=== PATIENT | female | born 1965 | race Caucasian/White ===

== ENCOUNTER 2020-07-11 13:20 | Emergency (ER) | payer OTHER, SELFPAY ==
[2020-07-11 13:21] VITALS: BP 149/75; PULSE 95; RESP 17; TEMP 36.6; O2SAT 100
--- NOTE | 2020-07-11 14:53 | ED.GENADULT ---
HPI - General Adult General Chief complaint: Extremity Injury, Lower Stated complaint: trouble walking due to right groin pain Time Seen by Provider: 07/11/20 13:27 Source: patient Mode of arrival: ambulatory Limitations: no limitations History of Present Illness HPI narrative: Patient is a 55-year-old female who presents to emergency department for evaluation of low back pain that radiates into the right hip. Patient notes aching pain worse with activity and movement patient has had this pain for months. . Patient is followed by primary care. Patient denies injury or trauma or other Related Data Home Medications Medication Instructions Recorded Confirmed acetaminophen-codeine tablet 12/01/19 alprazolam 12/01/19 amlodipine 12/01/19 venlafaxine mg PO 12/01/19 Allergies Allergy/AdvReac Type Severity Reaction Status Date / Time Penicillins Allergy Unknown Verified 12/01/19 08:29 Review of Systems Review of Systems: All systems reviewed & are unremarkable except as noted in HPI and below PMFSH Past Medical History Medical History Anxiety Depression Hypertension Social History Social History Smoking status: Current every day smoker Gender identity (if verbalized by the patient): Female Exam Narrative: Exam Narrative: GENERAL: Well-appearing, well-nourished, and in no acute distress. HEAD: Normocephalic, atraumatic. EYES: PERRLA and EOMI. ENT: Nares clear, no rhinorrhea or epistaxis. Mucous membranes moist. CHEST: Clear to auscultation. No respiratory distress. No wheezes rales or rhonchi HEART: Regular rate and rhythm. No murmur heard. EXTREMITIES: Normal range of motion. No edema. Tenderness across the lower lumbar spine no deformities noted SKIN: Warm, dry, no rash. NEURO: No focal deficits. Alert and oriented x3. Normal speech and gait. Motor and sensory intact and symmetrical in the extremities PSYCH: Normal mood and affect. Course Course Emergency Course: Patient in the room in no distress aware of case findings treatment plan and diagnosis agreeing to follow with primary care given an anti-inflammatory shot prior to discharge Vital Signs Vital signs: Vital Signs Temperature 97.8 F 07/11/20 13:21 Pulse Rate 95 07/11/20 13:21 Respiratory Rate 17 07/11/20 13:21 Blood Pressure 149/75 H 07/11/20 13:21 Pulse Oximetry 100 07/11/20 13:21 Temperature 97.8 F 07/11/20 13:21 Pulse Rate 95 07/11/20 13:21 Respiratory Rate 17 07/11/20 13:21 Blood Pressure 149/75 H 07/11/20 13:21 Pulse Oximetry 100 07/11/20 13:21 Medical Decision Making MDM Narrative Medical decision making narrative: Patients pain is positional in nature and localized to back without signs of cord compression or cauda equina based on neurological exam, skeletal exam and history. No fever or other significant factors to suggest osteomyelitis or spinal epidural abscess. No symptoms or signs to suggest pain is referred from abdominal or / cardiopulmonary sources. No pulsatile masses noted on exam. Patient ambulates with steady gait and is stable for outpatient management given case findings. Vital Signs Vital Signs: Vital Signs Temperature 97.8 F 07/11/20 13:21 Pulse Rate 95 07/11/20 13:21 Respiratory Rate 17 07/11/20 13:21 Blood Pressure 149/75 H 07/11/20 13:21 Pulse Oximetry 100 07/11/20 13:21 Temperature 97.8 F 07/11/20 13:21 Pulse Rate 95 07/11/20 13:21 Respiratory Rate 17 07/11/20 13:21 Blood Pressure 149/75 H 07/11/20 13:21 Pulse Oximetry 100 07/11/20 13:21 Discharge Plan Discharge Clinical Impression: Acute low back pain Patient Disposition: Home, Self-Care Condition: Stable Instructions: Antibiotic Form, Acute Low Back Pain (ED) Additional Instructions: Medications as needed and prescribed. Limit lifting and joyce
[2020-07-11 15:02] VITALS: BP 149/76; PULSE 90; RESP 17; O2SAT 98
== END 2020-07-11 15:03 | disposition home or self-care (01) ==
PROVIDERS: Emergency Provider Emergency Medicine; PCP Emergency Medicine
DX: M54.5 Low back pain (principal); F41.9 Anxiety disorder, unspecified; F32.9 Major depressive disorder, single episode, unspecified; I10 Essential (primary) hypertension; F17.200 Nicotine dependence, unspecified, uncomplicated
CPT/HCPCS: 99283

== ENCOUNTER 2020-09-02 08:41 | Outpatient (CLI) | payer OTHER, SELFPAY ==
--- NOTE | ~2020-09-02 | MM_ITS ---
EXAMINATION: MM screening brianna BI w ericka HISTORY: Screening TECHNIQUE: Craniocaudal and mediolateral oblique 3-D tomosynthesis images were obtained and synthetic 2-D images were generated. CAD analysis was submitted and interpreted. COMPARISON: Comparison to multiple prior studies sequentially, with oldest reviewed study dated 07/2018. BREAST PARENCHYMAL COMPOSITION: There are scattered areas of fibroglandular density. FINDINGS: There is no evidence of suspicious mass, calcification, or architectural distortion to sugg est malignancy in either breast. There has been no suspicious interval change. IMPRESSION: 1. No mammographic evidence of malignancy. 2. Recommend routine screening mammography in one year. BI-RADS Category 1: Negative Reviewed, dictated and finalized at location A.
== END 2020-09-02 08:42 | disposition home or self-care (01) ==
PROVIDERS: PCP Emergency Medicine; Visit Provider Emergency Medicine
DX: Z12.31 Encounter for screening mammogram for malignant neoplasm of breast (principal)
CPT/HCPCS: 77063; 77067

== ENCOUNTER 2020-11-28 10:48 | Outpatient (CLI) | payer OTHER, SELFPAY ==
--- NOTE | ~2020-11-28 | US_ITS ---
EXAMINATION: US pelvic complete w TV DATE: 11/28/2020 11:45 INDICATION: Pelvic pain Comparison: No prior studies for comparison. TECHNIQUE: Multiple transabdominal and endovaginal sonographic images of the pelvis performed. FINDINGS: The uterus measures 7 x 3 x 4.4 cm. The endometrial complex measures 2 mm. The right ovary measures 1.9 x 1.5 x 1.5 cm and the left ovary measures 1.7 x 0.9 x 0.8 cm. There ar e small follicles in each ovary. There is no free fluid in the pelvis. There are no abnormal masses seen on either side. IMPRESSION: 1. Normal pelvic ultrasound. Reviewed, dictated and finalized at location A. NG DOUBLE
--- NOTE | ~2020-11-28 | US_ITS ---
EXAMINATION: US soft tissue groin LT EXAM DATE: 11/28/2020 11:45 INDICATION: Left Inguinal pain; pelvic and perineal pain . TECHNIQUE: Multiple grayscale and Doppler images of the left inguinal symptomatic region were obtaine d (by a technologist who performed the scan) and subsequently reviewed. There is no prior study for comparison. FINDINGS: The left inguinal region is unremarkable, no evidence of hernia. Valsalva maneuvers were also imaged. No inguinal lymphadenopathy. IMPRESSION: Unremarkable ultrasound exam. Reviewed, dictated and finalized at location A. 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
== END 2020-11-28 10:49 | disposition home or self-care (01) ==
PROVIDERS: PCP Emergency Medicine; Visit Provider Nurse Practitioner Obstetrics & Gynecology
DX: R10.2 Pelvic and perineal pain (principal)
CPT/HCPCS: 76830; 76856; 76882

== ENCOUNTER 2020-12-25 08:41 | Outpatient (CLI) | payer MEDICARE, MEDICAID, SELFPAY ==
--- NOTE | ~2020-12-25 | CT_ITS ---
EXAMINATION: CT abdomen pelvis w con EXAM DATE: 12/25/2020 09:16 INDICATION: Intra-abdominal pelvic swelling mass, lump. Groin mass. TECHNIQUE: Spiral CT of the abdomen and pelvis was performed following intravenous injection of 100 m L Omnipaque 350. Axial, coronal and sagittal images were reviewed. The dose-length product (DLP) fo r this examination was 392.93 mGy-cm. The exposure was tailored according to patient size (auto mA e xposure control), and iterative reconstruction (ASIR) was used as additional dose reduction technique . There is no prior study for comparison. FINDINGS: Inguinal regions unremarkable. The liver, spleen, adrenal glands and pancreas are unremark able. Gallbladder is unremarkable. No biliary obstruction. Portal and splenic veins are patent. K idneys enhance symmetrically. There is no hydronephrosis. The uterus is unremarkable. The bladde r is unremarkable. There is no retroperitoneal or pelvic lymphadenopathy. There is mild scattered arteriosclerotic disease. The appendix is normal. There is moderate descending and sigmoid colonic diverticulosis. There is no adjacent inflammatory change to suggest diverticulitis. Small duodenal diverticulum. The stomach a nd small bowel are unremarkable. There is expected amount of colonic stool. No free intraperitonea l gas. The heart is normal in size. There are no pericardial or pleural effusions. The lung bases are unremarkable. There are no osteoblastic or osteolytic lesions identified. IMPRESSION: 1. No inguinal hernia or other groin mass. 2. Moderate colonic diverticulosis. Reviewed, dictated and finalized at location B. 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
[2020-12-25 09:07] LABS: Estimated Glomerular Filt Rate > 60
== END 2020-12-25 08:42 | disposition home or self-care (01) ==
LOC: ANHIMG 08:46
PROVIDERS: PCP Emergency Medicine; Visit Provider Obstetrics & Gynecology
DX: R19.00 Intra-abdominal and pelvic swelling, mass and lump, unspecified site (principal); K57.30 Diverticulosis of large intestine without perforation or abscess without bleeding
CPT/HCPCS: 74177; Q9967

== ENCOUNTER 2021-01-15 06:32 | Outpatient (CLI) | payer MEDICARE, MEDICAID, SELFPAY ==
--- NOTE | ~2021-01-15 | MR_ITS ---
EXAMINATION: MR brain/brain stem wo con EXAM DATE: 01/15/2021 07:17 INDICATION: Headaches. TECHNIQUE: Magnetic resonance imaging (MRI) of the brain/brain stem obtained without contrast. Sagitt al T1, axial diffusion, gradient echo (T2*), T1, T2, FLAIR sequences obtained. There is no prior st udy for comparison. FINDINGS: There is a small, thin quadrigeminal plate lipoma. There are no areas of restricted diffusi on to suggest acute infarction. There is no acute hemorrhage seen on the T2*, a hemosiderin sensitiv e sequence. No intraparenchymal brain mass. The ventricles are normal in size. There are no extra-a xial collections. Flow voids are seen in the cerebral arteries on the T2-weighted sequences consiste nt with their expected patency. The orbits are unremarkable. Soft tissue is unremarkable. Most of the right maxillary sinus is opacified. IMPRESSION: 1. No acute intracranial findings. 2. Incidental lipoma over the tectal plate. 3. Right maxillary sinus opacity. Reviewed, dictated and finalized at location B. 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
== END 2021-01-15 06:33 | disposition home or self-care (01) ==
PROVIDERS: PCP Emergency Medicine; Visit Provider Emergency Medicine
DX: R51.9 Headache, unspecified (principal)
CPT/HCPCS: 70551

== ENCOUNTER 2021-06-05 09:26 | Emergency (ER) | payer MEDICARE, MEDICAID, SELFPAY ==
--- NOTE | ~2021-06-05 | XR_ITS ---
EXAMINATION: XR ribs LT 2V w CXR 2V EXAM DATE: 06/05/2021 09:54 INDICATION: Initial encounter following injury, with pain of the left ribs. TECHNIQUE: Frontal projection of the upper left ribs, frontal projection of the lower left ribs, obli que projection of the left ribs, frontal and lateral chest x-ray(s) for interpretation. There is no prior study for comparison. FINDINGS: There are no displaced acute left rib fractures identified. There is no soft tissue abnor mality seen. No confluent consolidation, pneumothorax or pleural effusion suspected. Cardiomediastina l silhouette is normal. Consider educating patient that even if there is a radiographically occult nondisplaced rib fracture, there is no specific treatment other than to refrain from activity that prevents healing. IMPRESSION: No displaced left rib fractures. Reviewed, dictated and finalized at location A.
--- NOTE | ~2021-06-05 | CT_ITS ---
EXAMINATION: CT abdomen pelvis w con EXAM DATE: 06/05/2021 11:14 INDICATION: Fall left abdomen pain. TECHNIQUE: Spiral CT of the abdomen and pelvis was performed following intravenous injection of 100 m L Omnipaque 350. Axial, coronal and sagittal images of the abdomen and pelvis were reviewed. The do se-length product (DLP) for this examination was 285.39 mGy-cm. The exposure was tailored according to patient size (auto mA exposure control), and iterative reconstruction (ASIR) was used as additiona l dose reduction technique. Comparison is made to prior examination from 12/25/2020. FINDINGS: No solid organ injury. The liver, spleen, adrenal glands and pancreas are unremarkable. G allbladder is unremarkable. No biliary obstruction. Portal and splenic veins are patent. Kidneys e nhance symmetrically. There is no hydronephrosis. The uterus is unremarkable. The bladder is unr emarkable. There is no retroperitoneal or pelvic lymphadenopathy. The appendix is normal. The stomach and small bowel are unremarkable. There is moderate amount of c olonic stool. There is mild to moderate descending and sigmoid colonic diverticulosis. There is no a djacent inflammatory change to suggest diverticulitis. No free intraperitoneal gas. The heart is n ormal in size. There are no pericardial or pleural effusions. The lung bases are unremarkable. The re are no acute fractures identified. IMPRESSION: 1. No acute intra-abdominal findings. 2. Mild to moderate colonic diverticulosis. Reviewed, dictated and finalized at location A.
[2021-06-05 09:36] VITALS: BP 123/89; PULSE 95; RESP 18; TEMP 36.7; O2SAT 100
[2021-06-05 10:36] VITALS: BP 140/75; PULSE 71; RESP 18; O2SAT 98
[2021-06-05 10:59] LABS: Basophils Percent Auto 0.4 % (0.2-1.2); Eosinophils Absolute Auto 0.1 K/mm3 (0-0.3); Eosinophils Percent Auto 2.1 % (0-4.4); Hematocrit 38.9 % (37.0-47.0); Hemoglobin 12.3 g/dL (12.0-15.0); Immature Granulocyte Absolute 0.01 K/mm3 (0.00-0.031); Immature Granulocyte Percent A 0.2 % (0-0.5); Lymphocytes Absolute Auto 1.12 K/mm3 (0.9-3.2); Lymphocytes Percent Auto 23.9 % (18.3-44.2); Mean Corpuscular HGB Conc 31.6 g/dl (32-36); Mean Corpuscular Hemoglobin 30.2 pg (26-34); Mean Corpuscular Volume 95.6 fl (80-100); Mean Platelet Volume 8.8 fl (7.4-10.4); Monocytes Absolute Auto 0.5 K/mm3 (0.1-0.6); Monocytes Percent Auto 10.9 % (2.6-8.5); Neutrophils Absolute Auto 2.9 K/mm3 (1.3-6.7); Neutrophils Percent Auto 62.5 % (45.5-73.1); Platelet Count Result 265 k/mm3 (150-375); Red Blood Count 4.07 M/mm3 (4.2-5.4); Red Cell Distribution Width 13.2 % (11.5-14.5); White Blood Count 4.7 K/mm3 (4.5-10.0)
[2021-06-05 11:01] LABS: Alanine Aminotransferase 31 U/L (4-35); Alkaline Phosphatase 58 U/L (38-126); Anion Gap 7 mmol/L (8-16); Aspartate Amino Transferase 31 U/L (14-36); Bilirubin,Total 0.5 mg/dL (0.2-1.3); Blood Urea Nitrogen 12 mg/dL (7-17); Calcium 8.9 mg/dL (8.4-10.2); Carbon Dioxide 23 mmol/L (22-30); Chloride 109 mmol/L (98-107); Estimated CRCL calculation 69 ml/min; Estimated Glomerular Filt Rate > 60; Glucose 112 mg/dL (65-105); Lipase 71 U/L (23-300); Potassium 3.8 mmol/L (3.4-5.0); Sodium 139 mmol/L (137-145)
[2021-06-05] MEDS: SODIUM CHLORIDE 0.9% IV 1,000 ML 999 ML IV CONT (11:01)
[2021-06-05 11:24] LABS: Add Urine Microscopic? YES; Appearance Urine Cloudy (Clear); Bacteria Urine 4+ /hpf; Bilirubin Urine Negative (Negative); Blood Urine Negative (Negative); Color Urine Yellow (Yellow); Glucose Urine UA Negative (Negative); Ketones Urine Negative (Negative); Leukocyte Esterase Ur Negative LEU/UL (Negative); Mucus Urine Rare /lpf; Nitrate Urine Negative (Negative); Protein Urine Negative (Negative); Specific Grav Ur 1.015 (1.001-1.035); Squamous Epithelial Cell Urine Many /hpf (Few); Urobilinogen Urine Negative mg/dL (<2.0)
[2021-06-05 11:30] VITALS: TEMP 36.7
[2021-06-05 11:54] VITALS: BP 107/78; PULSE 67; RESP 12; O2SAT 98
--- NOTE | 2021-06-05 11:57 | ED.GENADULT ---
HPI - General Adult General Chief complaint: Fall Stated complaint: Fall-L rib pain Time Seen by Provider: 06/05/21 10:04 Source: patient and RN notes reviewed Mode of arrival: ambulatory Limitations: no limitations History of Present Illness HPI narrative: Patient is a 56-year-old female who presents to emergency department for evaluation of left ribs and abdominal pain left-sided status post slipping on the stairs a day and a half ago has had aching pain that is progressively worsened worse with activity and movement/denies head injury syncope loss of consciousness. Has not taken anything for her symptoms. Presents uncomfortable but not in distress Related Data Home Medications Medication Instructions Recorded Confirmed alprazolam 12/01/19 amlodipine 12/01/19 venlafaxine mg PO 12/01/19 duloxetine mg PO 06/05/21 Allergies Allergy/AdvReac Type Severity Reaction Status Date / Time Penicillins Allergy Unknown Verified 06/05/21 09:39 Review of Systems Review of Systems: All systems reviewed & are unremarkable except as noted in HPI and below PMFSH Past Medical History Medical History (Updated 06/05/21 @ 12:01 by Francois Jaimes PA-C) Anxiety Depression Hypertension Social History Social History Smoking status: Current every day smoker Gender identity (if verbalized by the patient): Female Exam Narrative: Exam Narrative: GENERAL: Well-appearing, well-nourished, uncomfortable and in no acute distress. HEAD: Normocephalic, atraumatic. EYES: PERRLA and EOMI. ENT: Nares clear, no rhinorrhea or epistaxis. Mucous membranes moist. CHEST: Clear to auscultation. No respiratory distress. No wheezes rales or rhonchi. Tenderness of the left lateral anterior ribs no bruising or deformity HEART: Regular rate and rhythm. No murmur heard. Normal peripheral pulses. ABDOMEN: Soft, nontender, left upper abdominal tenderness with voluntary guarding, normal active bowel sounds. EXTREMITIES: Normal range of motion. No edema. SKIN: Warm, dry, no rash. NEURO: No focal deficits. Alert and oriented x3. PSYCH: Normal mood and affect. Course Course Emergency Course: Patient in the room no distress aware of his findings treatment plan and diagnosis. Patient hemodynamically stable no high risk changes in the blood work or imaging will be referred back home with outpatient follow-up Vital Signs Vital signs: Vital Signs Temperature 98.1 F 06/05/21 09:36 Pulse Rate 95 06/05/21 09:36 Respiratory Rate 18 06/05/21 09:36 Blood Pressure 123/89 06/05/21 09:36 Pulse Oximetry 100 06/05/21 09:36 Temperature 98.1 F 06/05/21 11:30 Pulse Rate 67 06/05/21 11:54 Respiratory Rate 12 06/05/21 11:54 Blood Pressure 107/78 06/05/21 11:54 Pulse Oximetry 98 06/05/21 11:54 Medical Decision Making MDM Narrative Medical decision making narrative: Patients injury or pain is consistent with musculoskeletal etiology. No signs of neurological or vascular compromise on exam. Compartments and tisues are soft without signs of compartment syndrome. Pain is felt appropriate for further evaluation on an outpatient basis. No hypoxemia Vital Signs Vital Signs: Vital Signs Temperature 98.1 F 06/05/21 09:36 Pulse Rate 95 06/05/21 09:36 Respiratory Rate 18 06/05/21 09:36 Blood Pressure 123/89 06/05/21 09:36 Pulse Oximetry 100 06/05/21 09:36 Temperature 98.1 F 06/05/21 11:30 Pulse Rate 67 06/05/21 11:54 Respiratory Rate 12 06/05/21 11:54 Blood Pressure 107/78 06/05/21 11:54 Pulse Oximetry 98 06/05/21 11:54 Lab Data Result diagrams: 06/05/21 10:42 06/05/21 10:42 Labs: Lab Results 06/05/21 06/05/21 06/05/21 Range/Units 10:42 10:42 11:05 WBC 4.7 (4.5-10.0) K/mm3 RBC 4.07 L (4.2-5.4) M/mm3 Hgb 12.3 (12.0-15.0) g/dL Hct 38.9 (37.0-47.0) % MCV 95.6 (80-100) f
[2021-06-05 12:09] VITALS: BP 143/78; PULSE 69; RESP 18; O2SAT 98
== END 2021-06-05 12:24 | disposition home or self-care (01) ==
PROVIDERS: Emergency Medicine Emergency Medical Services; Emergency Provider Emergency Medicine; PCP Emergency Medicine
DX: R07.81 Pleurodynia (principal); R10.9 Unspecified abdominal pain; I10 Essential (primary) hypertension; F32.9 Major depressive disorder, single episode, unspecified; F41.9 Anxiety disorder, unspecified; F17.200 Nicotine dependence, unspecified, uncomplicated; K57.90 Diverticulosis of intestine, part unspecified, without perforation or abscess without bleeding; W10.9XXA Fall (on) (from) unspecified stairs and steps, initial encounter
CPT/HCPCS: 36415; 71046; 71100; 74177; 80053; 81001; 83690; 85025; 96361; 96365; 99284; J0131; J7030; Q9967

== ENCOUNTER 2021-09-09 09:59 | Outpatient (CLI) | payer MEDICARE, MEDICAID, SELFPAY ==
--- NOTE | ~2021-09-09 | MM_ITS ---
EXAMINATION: MM screening brianna BI w ericka HISTORY: Screening mammogram TECHNIQUE: Craniocaudal and mediolateral oblique 3-D tomosynthesis images were obtained and synthetic 2-D images were generated. CAD analysis was submitted and interpreted. COMPARISON: 09/02/2020, 07/26/2019, 03/09/2018 bilateral digital screening mammogram examinations BREAST PARENCHYMAL COMPOSITION: FINDINGS: There is no evidence of suspicious mass, calcification, or architectural distortion to sugg est malignancy in either breast. There has been no suspicious interval change. IMPRESSION: 1. No mammographic evidence of malignancy. 2. Recommend routine screening mammography in one year. BI-RADS Category 1: Negative Reviewed, dictated and finalized at location A.
== END 2021-09-09 10:00 | disposition home or self-care (01) ==
LOC: ANHIMG 10:01
PROVIDERS: PCP Emergency Medicine; Visit Provider Emergency Medicine
DX: Z12.31 Encounter for screening mammogram for malignant neoplasm of breast (principal)
CPT/HCPCS: 77063; 77067

== ENCOUNTER 2021-12-30 00:35 | Day surgery (SDC) | payer MEDICARE, MEDICAID, SELFPAY ==
[2021-12-17 14:05] VITALS: BMI 24.7
[2021-12-30 09:23] VITALS: BP 127/84; PULSE 82; RESP 16; TEMP 35.9; O2SAT 98; BMI 23.6
[2021-12-30] MEDS: LACTATED RINGERS 1,000 ML 150 ML IV CONT (09:36)
--- NOTE | 2021-12-30 10:13 | P.PNAN_ITS ---
Anes - Initial Pre Proc Eval Procedure: Operation Date: 12/30/21 10:30 Proposed Procedures p Colonoscopy - Blu Santo MD Date/Time: 12/30/21 10:13 Surgeon: Blu Santo MD Pre Op Diagnosis: change in bowel habits, constipation Patient Data Age: 56 Gender: F Height: 1.57 m Weight: 58.6 kg Last Vital Signs Temp 96.7 F L 12/30/21 09:23 Pulse 82 12/30/21 09:23 Resp 16 12/30/21 09:23 BP 127/84 12/30/21 09:23 Pulse Ox 98 12/30/21 09:23 Allergies Allergy/AdvReac Type Severity Reaction Status Date / Time Penicillins Allergy Unknown Verified 12/30/21 09:21 Home Medications Medication Instructions Recorded Confirmed Type alprazolam 0.5 mg PO PRN 12/01/19 12/30/21 History amlodipine 5 mg PO DAILY 12/01/19 12/30/21 History duloxetine 60 mg PO DAILY 06/05/21 12/30/21 History ibuprofen [IBU] 600 mg PO QID PRN #7 tablet 06/05/21 12/30/21 Rx lidocaine 1 patch TOPICAL DAILY #1 ea 06/05/21 12/30/21 Rx metaxalone [Skelaxin] 800 mg PO TID PRN #7 tablet 06/05/21 12/30/21 Rx Patient hx anesthesia problems: none Family hx anesthesia problems: none Results Review: All pre-operative results and documents have been reviewed as part of the pre-operative evaluation. [facility], [facility] Past Medical History Medical History (Updated 06/06/21 @ 00:01 by Sharan Padilla) Anxiety Depression Hypertension Social History Social History Years smoked: 20 Smoking status: Former smoker Tobacco type: cigarettes Alcohol intake: current Drinks per week: 1 Substance use: never Substance use type: does not use Living arrangements: with family Gender identity (if verbalized by the patient): Female Spiritual care concerns: No Anes - Eval Final PreProcedure Day of Procedure 12/30/21 10:13 Patient weight: normal Heart: regular rate and rhythm Lungs: clear to auscultation Airway: Mallampati scale class II Neurological: alert and oriented Last oral intake: >/= 8 hours ASA classification: II Emergent: no Anesthetic plan: proceed Anesthesia type and monitoring: general GIVS and standard monitoring Results Review: All pre-operative results and documents have been reviewed as part of the pre-operative evaluation. Informed Consent: The patient's anesthetic plan and its attendant risks and benefits were discussed with the patient/family/POA. Questions were solicited and answers provided to the satisfaction of the patient/family/POA.
--- NOTE | 2021-12-30 10:45 | PM.HPGS ---
History of Present Illness History of Present Illness Consent: Risks, benefits, and alternatives have been discussed and questions answered. Patient agrees to proceed with procedure. Chief complaint: change in bowel habits, constipation Narrative: Jena Shaikh is a 56 year old female with more constipation for last few months, last colonoscopy 2018 with normal random colon bx. 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 Review of Systems Constitutional: Constitutional: Denies headache(s) and Denies weakness Eyes: Eyes: Denies blurry vision ENT: Reports Normal hearing present, Denies headache(s) and Denies neck pain Cardiovascular: Cardiovascular: Denies chest pain and Denies dyspnea Respiratory: Respiratory: Denies dyspnea Gastrointestinal: Gastrointestinal: Reports no additional gastrointestinal complaints Genitourinary: Genitourinary: Denies dysuria Musculoskeletal: Musculoskeletal: Denies neck pain Integumentary/Breasts: Skin/Breast: Denies dry skin Neurologic: Reports Normal hearing present, Denies headache(s) and Denies weakness Psychiatric: Psychiatric: Denies anxiety Endocrine: Endocrine: Denies change in body appearance Hematologic/Lymphatic: Hematologic/Lymphatic: Denies easy bleeding Allergic/Immunologic: Allergic/Immunologic: Denies urticaria PMFSH Past Medical History Medical History (Updated 12/30/21 @ 10:46 by Blu Santo MD) Anxiety Constipation Depression Hypertension Social History Social History Years smoked: 20 Smoking status: Former smoker Tobacco type: cigarettes Alcohol intake: current Drinks per week: 1 Substance use: never Substance use type: does not use Living arrangements: with family Gender identity (if verbalized by the patient): Female Spiritual care concerns: No Meds Home Medications and Allergies Home Medications Medication Instructions Recorded Confirmed Type alprazolam 0.5 mg PO PRN 12/01/19 12/30/21 History amlodipine 5 mg PO DAILY 12/01/19 12/30/21 History duloxetine 60 mg PO DAILY 06/05/21 12/30/21 History ibuprofen [IBU] 600 mg PO QID PRN #7 tablet 06/05/21 12/30/21 Rx lidocaine 1 patch TOPICAL DAILY #1 ea 06/05/21 12/30/21 Rx metaxalone [Skelaxin] 800 mg PO TID PRN #7 tablet 06/05/21 12/30/21 Rx Allergies Allergy/AdvReac Type Severity Reaction Status Date / Time Penicillins Allergy Unknown Verified 12/30/21 09:21 Vital Signs Vital Signs - 24 hr 12/30/21 09:23 Temperature 96.7 F L Pulse Rate 82 Respiratory Rate 16 Blood Pressure 127/84 Pulse Oximetry 98 Exam Const: General: comfortable and no acute distress HENMT: General nose exam: Normal nares present Eyes: General: appearance normal, both eyes and all related structures Neck: Neck: no JVD Resp: Auscultation: clear to auscultation bilaterally Cardio: Rate: regular rate Rhythm: regular rhythm GI: Inspection: non-distended GI Palp: Yes Soft to palpation Skin: General skin exam: normal color Neuro: General: gait normal Speech: normal speech Extrem: General: normal to inspection Psych: Mental Status: mental status grossly normal Assessment and Plan Assessment and plan (1) Constipation: Code(s): K59.00 - Constipation, unspecified Status: Acute Assessment and Plan: colonoscopy
[2021-12-30 11:03] VITALS: BP 94/63; PULSE 74; RESP 22; O2SAT 97
[2021-12-30 11:13] VITALS: BP 116/66; PULSE 73; RESP 13; O2SAT 100
[2021-12-30 11:23] VITALS: BP 119/61; PULSE 69; RESP 32; O2SAT 99
== END 2021-12-30 11:34 | disposition home or self-care (01) ==
PROVIDERS: PCP Emergency Medicine; Visit Provider Internal Medicine Gastroenterology
PROC: 0DJD8ZZ Inspection of Lower Intestinal Tract, Via Natural or Artificial Opening Endoscopic (ICD-10-PCS; CPT 45378; principal; 2021-12-30 10:30)
DX: Z12.11 Encounter for screening for malignant neoplasm of colon (principal); K59.00 Constipation, unspecified; K57.30 Diverticulosis of large intestine without perforation or abscess without bleeding; K64.8 Other hemorrhoids; I10 Essential (primary) hypertension; F41.8 Other specified anxiety disorders; Z87.891 Personal history of nicotine dependence
CPT/HCPCS: G0121; J2704; J7120

== ENCOUNTER 2022-06-12 11:21 | Emergency (ER) | payer OTHER, MEDICARE, MEDICAID, SELFPAY ==
--- NOTE | ~2022-06-12 | XR_ITS ---
XR hip BI wo pelvis 06/12/2022 14:14 Indication: Hip pain after fall Procedure: 2 views of each hip Comparison: No prior studies for comparison. Findings: There is moderate osteoarthritis of the hips. No acute fracture or traumatic malalignment. Pelvic rings are intact. There is lower lumbar spondylosis. Impression: 1: No acute fracture. Reviewed, dictated and finalized at location A. Impression: 1: No acute fracture.
--- NOTE | ~2022-06-12 | XR_ITS ---
XR shoulder RT min 2V 06/12/2022 12:41 INDICATION: Right shoulder pain after fall PROCEDURE: 4 views right shoulder COMPARISON: No prior studies for comparison. FINDINGS: Fracture, dislocation or subluxation is not identified. There are mild degenerative changes of the acromioclavicular joint. The soft tissues appear within normal limits. No foreign bodies are identified. IMPRESSION: 1: NO ACUTE BONE OR JOINT ABNORMALITY IDENTIFIED. Reviewed, dictated and finalized at location A.
--- NOTE | ~2022-06-12 | XR_ITS ---
XR knee LT 2V 06/12/2022 12:42 INDICATION: Left knee pain PROCEDURE: 2 views left knee COMPARISON: No prior studies for comparison. FINDINGS: Fracture, dislocation or subluxation is not identified. No significant joint effusion. The soft tissues appear within normal limits. No foreign bodies are identified. IMPRESSION: 1: NO ACUTE BONE OR JOINT ABNORMALITY IDENTIFIED. Reviewed, dictated and finalized at location A.
--- NOTE | ~2022-06-12 | XR_ITS ---
XR hand RT min 3V 06/12/2022 12:41 INDICATION: Right hand pain PROCEDURE: 3 views right hand COMPARISON: No prior studies for comparison. FINDINGS: Fracture, dislocation or subluxation is not identified. The soft tissues appear within norm al limits. No foreign bodies are identified. IMPRESSION: 1: NO ACUTE BONE OR JOINT ABNORMALITY IDENTIFIED. Reviewed, dictated and finalized at location A.
--- NOTE | ~2022-06-12 | XR_ITS ---
XR ankle RT 2V 06/12/2022 12:41 Indication: Right ankle pain after fall Procedure: 2 views right ankle Comparison: No prior studies for comparison. Findings: There is a probable nondisplaced oblique distal fibular fracture. Ankle mortise intact. Arnold ar dome is normal. Small degenerative calcaneal enthesophyte. Impression: 1: Probable nondisplaced oblique distal fibular fracture. Correlate for point tenderness. Reviewed, dictated and finalized at location A. Impression: 1: Probable nondisplaced oblique distal fibular fracture. Correlate for point t enderness.
--- NOTE | ~2022-06-12 | CT_ITS ---
EXAMINATION: CT cervical spine wo con DATE: 06/12/2022 12:53 INDICATION: Status post fall. Neck pain. TECHNIQUE: Computed tomography (CT) of the cervical spine was performed without intravenous contrast. The dose-length product was 239 mGy-cm. Automated exposure control and iterative reconstruction tech nique were employed. COMPARISON: None FINDINGS: Normal cervical alignment. There is degenerative disc disease at C3-4 through C6-7. Odontoi d process within normal limits. Lateral masses are normally aligned. There is moderate multilevel unc inate hypertrophy. Lung apices are normal. No significant paraspinal soft tissue abnormality. No acut e fracture or traumatic malalignment. Spinous processes are normal. Craniovertebral junction within n ormal limits. No evidence for perched facet. IMPRESSION: 1. No acute abnormality of the cervical spine. Reviewed, dictated and finalized at location A.
--- NOTE | ~2022-06-12 | CT_ITS ---
EXAMINATION: CT lumbar spine wo con DATE: 06/12/2022 12:53 INDICATION: Low back pain after fall TECHNIQUE: Computed tomography (CT) of the lumbar spine was performed without intravenous contrast. T he dose-length product was 690.64 mGy-cm. Automated exposure control and iterative reconstruction jared hnique were employed. COMPARISON: None FINDINGS: Normal lumbar alignment. There is degenerative disc disease at L5-S1. No acute fracture or traumatic malalignment. There are symmetric degenerative changes of the sacroiliac joints. No evidenc e for spondylolysis or spondylolisthesis. No significant paraspinal soft tissue abnormality. IMPRESSION: 1. No acute abnormality of the lumbar spine. Reviewed, dictated and finalized at location A.
--- NOTE | ~2022-06-12 | CT_ITS ---
EXAMINATION: CT brain wo con DATE: 06/12/2022 12:54 INDICATION: Status post fall. Head injury. TECHNIQUE: Computed tomography (CT) of the head was performed without intravenous contrast. The dose- length product was 605.33 mGy-cm. Automated exposure control and iterative reconstruction technique w ere employed. COMPARISON: None FINDINGS: No acute intracranial hemorrhage, infarction, mass or mass effect. No ventriculomegaly or m idline shift. Basilar cisterns are patent. There is right maxillary sinus disease, likely chronic. Ma stoids are pneumatized. No depressed skull fractures. There are scattered mild periventricular and rey bcortical white matter changes, most likely related to small vessel ischemic disease (microangiopathy ). IMPRESSION: 1. No acute intracranial abnormality. 2: Right maxillary sinus disease, likely chronic. Reviewed, dictated and finalized at location A.
[2022-06-12 11:26] VITALS: BP 150/97; PULSE 89; RESP 16; TEMP 36.6; O2SAT 97
--- NOTE | 2022-06-12 11:58 | ED.FALL ---
HPI - Fall General Chief Complaint: Fall Stated Complaint: glf at [facility] Time Seen by Provider: 06/12/22 11:35 History of Present Illness HPI Narrative: Patient is a 57-year-old female here for evaluation after a fall earlier today. Patient states that she was walking in a grocery store, when she slipped on some water, and fell backwards. She states that she landed on her buttocks, fell backwards and believes she struck her head but she is unsure. Denies LOC. She was able to get up and ambulate after the accident. Currently complaining of pain all over , notes is most severe in severe in neck, low back, right wrist, shoulder, ankle and left knee. Denies incontinence or retention of bowel or bladder. No blood thinner use. Related Data Home Medications Medication Instructions Recorded Confirmed alprazolam 1 mg tablet 0.5 mg PO PRN 12/01/19 12/30/21 amlodipine 5 mg tablet 5 mg PO DAILY 12/01/19 12/30/21 duloxetine 60 mg capsule,delayed 60 mg PO DAILY 06/05/21 12/30/21 release Allergies Allergy/AdvReac Type Severity Reaction Status Date / Time kiwi Allergy Unknown Verified 06/12/22 11:33 Penicillins Allergy Unknown Verified 06/12/22 11:33 Review of Systems Review of Systems: Gen.: Denies fevers or chills Eyes: Denies eye pain or visual change ENT: Denies congestion Respiratory: Denies shortness of breath or cough CV: Denies chest pain or palpitations GI: Denies abdominal pain nausea, emesis or diarrhea denies burning, urgency, frequency or hematuria Musculoskeletal: Reports pain in neck, low back, right wrist, right shoulder, left knee, right ankle. Neuro: Denies numbness, tingling, weakness or focal weakness Skin: Denies rash Except as documented, all other systems reviewed and negative [facility] Past Medical History Medical History Anxiety Constipation Depression Hypertension Social History Social History Years smoked: 20 Smoking status: Former smoker Tobacco type: cigarettes Alcohol intake: current Drinks per week: 1 Substance use: never Substance use type: does not use Gender identity (if verbalized by the patient): Female Spiritual care concerns: No Exam Narrative: APPEARANCE: Well appearing, no pain in distress, well-nourished. Head: Normocephalic and atraumatic. EYES: PERRLA/EOMI, conjunctivae clear NOSE: No nasal drainage EARS: External ear normal in appearance THROAT: Oropharynx is clear. Mucous membranes are moist. NECK: No midline tenderness along C spine, examined after C-spine was cleared. Supple. No adenopathy, no masses. RESPIRATORY: Airway patent, respirations nonlabored. Clear to auscultation bilaterally, no rales, rhonchi, wheezing. CARDIOVASCULAR: Regular rate and rhythm without murmurs, rubs, or gallops. ABDOMINAL: Normoactive bowel sounds. Soft, nontender, nondistended. No rebound tenderness or guarding. MUSCULOSKELETAL: Patient is tender to palpation over right humerus, digits 2-4 of right hand. No anatomic snuffbox tenderness. FROM in right upper extremity at the wrist, elbow, notes pain in shoulder with external rotation. Tender to palpation over midline of L spine, no step-offs or deformities noted. Straight leg raise positive on the left. No bony tenderness along bilateral hips. Tender to palpation over right distal fibula. NEURO: Normal speech. No focal neurologic deficits. SKIN: Skin is warm and dry. No rashes. PSYCHIATRIC: Normal affect/mood. Course Consultations Consultation #1: Spoke with Dr. Lindsay, orthopedic surgeon, recommended posterior fiberglass splint and will see in office. Date: 06/12/22 Time: 14:34 Vital Signs Vital signs: Vital Signs Temperature 98 F 06/12/22 11:26 Pulse Rate 89 06/12/22 11:26 Respiratory Rate 16 06/12/22 11:26 Blood Pressure 150/97 H 06/12/22 11:26 Pulse Oximetry 97 06/12/22 11:
[2022-06-12] MEDS: ACETAMINOPHEN 500 MG TABLET 1000 MG PO (13:48)
[2022-06-12] MEDS: IBUPROFEN 600 MG TABLET PO (13:48)
[2022-06-12 13:53] VITALS: BP 135/87; PULSE 80; RESP 16; O2SAT 97
== END 2022-06-12 16:15 | disposition home or self-care (01) ==
PROVIDERS: Emergency Provider General Practice; PCP Emergency Medicine
DX: S82.831A Other fracture of upper and lower end of right fibula, initial encounter for closed fracture (principal); S19.9XXA Unspecified injury of neck, initial encounter; S39.92XA Unspecified injury of lower back, initial encounter; S69.91XA Unspecified injury of right wrist, hand and finger(s), initial encounter; S49.91XA Unspecified injury of right shoulder and upper arm, initial encounter; S89.92XA Unspecified injury of left lower leg, initial encounter; W01.0XXA Fall on same level from slipping, tripping and stumbling without subsequent striking against object, initial encounter
CPT/HCPCS: 29515; 70450; 72125; 72131; 73030; 73130; 73521; 73560; 73600; 99284; A9270

== ENCOUNTER 2022-08-18 14:30 | Outpatient (RCR) | payer MEDICARE, MEDICAID, SELFPAY ==
--- NOTE | 2022-08-02 09:04 | PTOPEVAL1 ---
Evaluation Information Assessment Status Evaluation Diagnosis s/p R ankle sprain Onset 06-12-22 Subjective Information Jena reports: she slipped and fell, hurting her ankle; is wearing the ankle boot most of the time; in the beginning was not putting weight on her leg, now putting some wt on it; using crutches all the time at home; have started some ankle movements when brace is off; ankle is feeling better and not as swollen as it was; Reported Pain Level Pain Score Self Report range of 3-6/10 Additional Pain Score Comments pain when move around in bed, roll from side/side; educated on correct sleep position with pillow between knees/ankles; awaken from sleeping 2x/ night; up/walking in home about 15 minutes; also reports R knee pain and swelling since fell-- did not have any problems with knee before; Assessment PT Clinical Summary Jena is s/p fall with R ankle sprain. She was indep prior to the fall and now has assist of family and using crutches and walking boot. She has decreased R ankle strength, decreased DF ROM and unable to tolerate full wt on R LE. Skilled PT services are indicated for R ankle strengthening and stretching exercises, modalities PRN for pain and edema with education to progress HEP and gait as tolerated. She stated she will be out of town from Aug 21- . Plan of Care Interventions Electrical Stimulation,Gait Training,Hot Pack/Cold Pack,Intermittent Compression,Manual Therapy, Neuro Re-education,Patient/Caregiver Education, Therapeutic Activities,Therapeutic Exercise,Self- Care/Home Management PT Services Indicated Yes Treatment Frequency and 2x/wk for 6 weeks Duration These treatments will address the objective and functional deficits as defined above. The patient will be advanced safely and appropriately in order for the patient to progress towards his/her prior level of function. Additional exercises will be introduced and as well as a comprehensive home exercise program upon discharge, if needed, ?to ensure carryover of functional gains achieved in the clinic. This treatment plan has been reviewed and agreement upon by the patient.
--- NOTE | 2022-08-18 15:12 | PTOPEVAL1 ---
Assessment and note entered by Iris Douglas, PT Evaluation Information Assessment Status Re-evaluation Diagnosis s/p R ankle sprain Onset 06-12-22 Subjective Information Jena reports: ankle is doing good; no longer wearing the walking boot; using one crutch all the time; saw yesterday and he was pleased with her ankle; leaving to go to [place] next week; Reported Pain Level Pain Score Self Report R ankle Additional Pain Score Comments pain range 0-2/10 in lateral R ankle; sleep without awakening due to ankle pain; standing/ walking tolerance of 15 minutes, then have to sit down; is not wearing the walking boot; doing all the exercises at home; continues to have pain over R medial knee; Assessment PT Clinical Summary Jena has received 6 PT sessions. Compared to the initial evaluation: pain rating has decreased; reported walking/activity and sleeping tolerances have improved; ankle DF ROM and ankle strength have improved; she is not using the walking boot and is using one crutch with walking; Jena is independent with her home exercise program. And is to continue to increase reps. She is leaving on vacation and will be out of town for the next 2 & 1/2 weeks. Will put PT on HOLD. After she returns for follow up dr mosquera, if additional PT is indicated, she will need a new order to resume therapy. She understands this. These treatments will address the objective and functional deficits as defined above. The patient will be advanced safely and appropriately in order for the patient to progress towards his/her prior level of function. Additional exercises will be introduced and as well as a comprehensive home exercise program upon discharge, if needed, ?to ensure carryover of functional gains achieved in the clinic. This treatment plan has been reviewed and agreement upon by the patient.
--- NOTE | 2022-10-11 13:01 | PCPTNOTE ---
PHYSICAL THERAPY DISCHARGE 10-11-22 Attending Provider: Adilson Colmenares MD Patient:Jena Shaikh Date of :1965 Jena has not returned for any further treatments since the reevaluation on 08/18/2022, therefore she will be discharged at this time. Refer to the reevaluation report for her status at the last session. Thank you for referring Jena to [facility].
== END 2022-10-12 11:19 | disposition home or self-care (01) ==
LOC: ANHPT 14:30
PROVIDERS: PCP Emergency Medicine; Visit Provider Orthopaedic Surgery
DX: S93.401D Sprain of unspecified ligament of right ankle, subsequent encounter (principal)
CPT/HCPCS: 97014; 97110; 97116; 97140; 97161; G0283

== ENCOUNTER 2023-02-10 07:42 | Outpatient (CLI) | payer MEDICARE, MEDICAID, SELFPAY ==
--- NOTE | ~2023-02-10 | MM_ITS ---
EXAMINATION: MM screening [facility] BI w ericka HISTORY: Screening TECHNIQUE: Craniocaudal and mediolateral oblique 3-D tomosynthesis images were obtained and synthetic 2-D images were generated. CAD analysis was submitted and interpreted. COMPARISON: Comparison to multiple prior studies sequentially, with oldest reviewed study dated 07/2018. BREAST PARENCHYMAL COMPOSITION: There are scattered areas of fibroglandular density. FINDINGS: There is no evidence of suspicious mass, calcification, or architectural distortion to sugg est malignancy in either breast. There has been no suspicious interval change. IMPRESSION: 1. No mammographic evidence of malignancy. 2. Recommend routine screening mammography in one year. BI-RADS Category 1: Negative Reviewed, dictated and finalized at location A.
--- NOTE | ~2023-02-10 | DEXA_ITS ---
Bone Density Report Name: LUL SERRATO Age: 57 Sex: Female Ethnicity: White Date of : 1965 Indication: osteopenia; prior fracture; postmenopausal Referring Provider: AMY REZA Study: Bone densitometry was performed. Exam Date: February 10, 2023 Accession number: [id number] Bone Density: Region BMD T-score Z-score Classification AP Spine(L1-L4) 0.766 -2.6 -1.1 Osteoporosis Femoral Neck (Left) 0.669 -1.6 -0.3 Osteopenia Total Hip (Left) 0.805 -1.1 -0.2 Osteopenia Femoral Neck (Right) 0.765 -0.8 0.5 Normal Total Hip (Right) 0.822 -1.0 0.0 Normal Total Hip Mean 0.814 -1.1 -0.1 Osteopenia World Health Organization criteria for BMD impression classify patients as: Normal (T-score at or above -1.0), Osteopenia (T-score between -1.0 and -2.5), or Osteoporosis (T-score at or below -2.5). 10-year Fracture Risk: FRAX not reported because: Some T-score for Spine Total or Hip Total or Femoral Neck at or below -2.5 Previous Exams: Region Exam Age BMD T-score BMD Change BMD Change Date g/cm2 vs Baseline vs Previous AP Spine (L1-L4) 02/10/2023 57 0.766 -2.6 -0.141 (-15.6% -0.141 (-15.6% 07/26/2019 54 0.908 -1.3 Total Hip(Left) 02/10/2023 57 0.805 -1.1 -0.125 (-13.4% -0.125 (-13.4% 07/26/2019 54 0.930 -0.1 Total Hip(Right) 02/10/2023 57 0.822 -1.0 -0.133 (-13.9% -0.133 (-13.9% 07/26/2019 54 0.955 0.1 *Denotes significance at 95% confidence level, LSC for AP Spine = 0.022 g/cm2, LSC for Total Hip = 0.027 g/cm2 Clinical Information Provided by Patient: Has had a low trauma fracture Has used the following medications: Vitamin D Patient maximum height was 62 Menopause Age: 46 No regular weight bearing exercise Onset of menses at age 12 Number of children 4 Impression: The patient has established osteoporosis, based on the Total Spine T-score and the existence of a prior fracture. The patient has risk factors, including: previous fracture. The BMD for the AP Spine (L1-L4) decreased, changing by -15.6% since the last DXA exam. The BMD for the Total Hip(Left) decreased, changing by -13.4% since the last DXA exam. The BMD for the Total Hip(Right) decreased, changing by -13.9% since the last DXA exam. Discussion: HIGH RISK OF FRACTURE. BONE DENSITY IS UNDESIRABLY LOW AT ONE OR MORE SKELETAL SITES, CONSISTENT WITH POSTMENOPAUSAL OSTEOPOROSIS. This patient's lowest T-score, in a patient who has previously fractured, meets the Wo
== END 2023-02-10 07:43 | disposition home or self-care (01) ==
LOC: ANHIMG 07:43
PROVIDERS: PCP Emergency Medicine; Visit Provider Emergency Medicine
DX: Z12.31 Encounter for screening mammogram for malignant neoplasm of breast (principal); M81.0 Age-related osteoporosis without current pathological fracture; M85.852 Other specified disorders of bone density and structure, left thigh; M85.851 Other specified disorders of bone density and structure, right thigh
CPT/HCPCS: 77063; 77067; 77080

== ENCOUNTER 2023-08-13 10:16 | Outpatient (CLI) | payer MEDICARE, MEDICAID, SELFPAY ==
--- NOTE | ~2023-08-13 | MR_ITS ---
EXAMINATION: MR lumbar spine wo con DATE: 08/13/2023 11:00 INDICATION: Lumbago with sciatica, right-sided. TECHNIQUE: Magnetic resonance imaging (MRI) of the lumbar spine was performed without intravenous con trast. Sequences included sagittal T2-weighted FSE, sagittal T2-weighted FS FSE, sagittal T1-weighted FSE, and axial T2-weighted FSE. COMPARISON: Lumbar spine MRI 10/16/2018 FINDINGS: There is 6 degrees dextrocurvature of lumbar spine. Vertebral body heights are normal. Ther e is mildly decreased disc height at L2-L3 and L3-L4 and severely decreased disc height at L5-S1. The distal spinal cord signal intensity is normal. The conus medullaris is at L1-L2. The following disc levels are specifically discussed: L1-L2: The disc does not extend beyond the endplate margin. There is mild left facet joint osteoarthr itis. There is no neural foraminal stenosis. There is no central canal stenosis. L2-L3: The disc is bulging. There is mild right and severe left facet joint osteoarthritis. There is mild bilateral neural foraminal stenosis. There is mild central canal stenosis. L3-L4: The disc is bulging. There is mild bilateral facet joint osteoarthritis. There is mild bilater al neural foraminal stenosis. There is mild central canal stenosis. L4-L5: The disc is bulging. There is mild bilateral facet joint osteoarthritis. There is mild bilater al neural foraminal stenosis. There is mild central canal stenosis. L5-S1: The disc is bulging and has an annular fissure. There is severe right and moderate left facet joint osteoarthritis. There is moderate right and mild left neural foraminal stenosis. There is mild central canal stenosis. IMPRESSION: 1. Severe lower lumbar spondylosis, stable from 10/16/2018. Reviewed, dictated and finalized at location A.
== END 2023-08-13 10:17 | disposition home or self-care (01) ==
PROVIDERS: PCP Emergency Medicine; Visit Provider Emergency Medicine
DX: M54.41 Lumbago with sciatica, right side (principal); M47.896 Other spondylosis, lumbar region
CPT/HCPCS: 72148

== ENCOUNTER 2023-09-01 13:21 | Outpatient (RCR) | payer MEDICARE, MEDICAID, SELFPAY ==
--- NOTE | 2023-09-01 15:14 | PTOPEVAL1 ---
Assessment and note entered by Bj Decker Evaluation Information Assessment Status Evaluation Diagnosis right knee pain, lumbago Onset 05/21/22 Subjective Information Pt. reports she fell in May of last year. She does not remember the exact day. She states that she slipped in some water at [employer]. She reports that she went to the hospital immediately. She states that she had a distal fibula fx on the right. She was put in a boot for about 2 months. She states that she did some rehab after getting out of the boot. She reports that pain is located in the right buttock, down the right thigh and into the groin, and also describes pain in the lower leg. She reports that pain is increased with long periods of sitting and standing. She reports that pain makes sleep difficulty. She reports that she has a hx of previous back problems before her fall. Pt. reports that she can walk for about 10-15 minutes before having to sit down due to pain. She reports that she enjoys working on her yard, but cannot do this activity for any adequate period of time due to her pain. She reports that her goal is to decrease her right leg pain and buttock pain. Reported Pain Level Pain Score 5,7,2: Self Report Assessment PT Clinical Summary Pt. is a 58 year old female who enters the clinic with low back pain and right knee pain. She presents with indication of lumbar radiculopathy, as well as right hip pathology on this date. She currently presents with impaired gait, impaired ROM, impaired strength, pain and functional decline. Continued skilled PT is indicated in order to improve these areas to allow for improved comfort with IADL performance. Plan of Care Interventions Electrical Stimulation,Gait Training,Hot Pack/Cold Pack,Manual Therapy,Mechanical Traction,Neuro Re- education,Patient/Caregiver Educati,Therapeutic Activities,Therapeutic Exercise PT Services Indicated Yes Treatment Frequency and 2x/week x 10 visits Duration These treatments will address the objective and functional deficits as defined above. The patient will be advanced safely and appropriately in order for the patient to progress towards his/her prior level of function. Additional exercises will be introduced and as well as a comprehensive home exercise program upon discharge, if needed, ?to ensure carryover of functional gains achieved in the clinic. This treatment plan has been reviewed and agreement upon by the patient.
--- NOTE | 2023-09-01 15:15 | OPREHPOC ---
Outpatient Therapy Plan of Care This is a Multidisciplinary Plan of Care that may contain components documented by all disciplines (PT, OT, and ST.) PT Problem 1 PT Problem #1 Knowledge Deficit PT Goal 1 Goal Independent with a HEP addressing trunk mobility and flexibility Target Visit 2 PT Problem 2 PT Problem #2 Impaired Range of Motion PT Goal 1 Goal -Present at 10 degrees from full knee extension bilateral with the 90/90 test -Pt. will present with 110 degrees active right hip flexion Target Visit 5 PT Problem 3 PT Problem #3 Impaired Gait PT Goal 1 Goal -Pt. will ambulate with equal right and left stance with no indication of trendelenburg. -Pt. will report being able to ambulate for 30 minutes with 2/10 pain at worst Target Visit 10 PT Problem 4 PT Problem #4 Impaired Strength PT Goal 1 Goal Pt. will present with 5/5 gross l.e. strength with manual muscle testing. Target Visit 10
--- NOTE | 2023-09-12 14:29 | PCPTNOTE ---
Patient called & cancelled all scheduled appointments due to DR wanting Pt to wait until after injection. Informed PT.
--- NOTE | 2023-11-17 09:44 | PTOPDC ---
Assessment and note entered by Bj Decker Discharge Information Assessment Status Discharge - Pt Not Present Diagnosis right knee pain, lumbago Onset 05/21/22 Assessment PT Clinical Summary Mrs. Shaikh attended her initial evaluation on 11/12. She has failed to return to the clinic and has not contacted the clinic. At this time refer to her initial evaluation for discharge status. She will be discharged from our care at this time. Plan of Care PT Services Indicated D/C from PT
== END 2023-11-17 11:07 | disposition home or self-care (01) ==
LOC: ANHPT 13:21
PROVIDERS: PCP Emergency Medicine; Visit Provider Emergency Medicine
DX: M25.561 Pain in right knee (principal)
CPT/HCPCS: 97014; 97110; 97162; G0283

== ENCOUNTER 2023-09-13 08:10 | Outpatient (CLI) | payer MEDICARE, MEDICAID, SELFPAY ==
--- NOTE | ~2023-09-13 | XR_ITS ---
EXAMINATION: XR lg joint inject/asp w image DATE: 09/13/2023 09:02 INDICATION: Right hip osteoarthritis TECHNIQUE: A time-out was performed to verify the patient's name, date of , and procedure to b e performed. The procedure including the risks, benefits, and alternatives was discussed with the pat ient. Risks discussed included bleeding and infection. The patient understood the risks and agreed to proceed. The skin overlying the right hip joint was prepped and draped in usual sterile fashion. A nesthetic was administered with 1% lidocaine subcutaneously. A 22 G needle was advanced under fluoro scopic guidance into the joint. Injection of 1 mL of Omnipaque 240 confirmed intra-articular positio n of the needle. Subsequently, injectate consisting of 3 mL of a 2:1 mixture of 0.5% bupivacaine:80 mg/mL Depo-Medrol for a total dosage of 80 mg Depo-Medrol was instilled. Washout of contrast was seen confirming intra-articular administration. The needle was removed and the entry site was cleaned and dressed. There were no immediate complications. Fluoroscopy exposure time was 0.1 minutes. The tota l number of images was 1. Total DAP was 0.3 Gycm^2 FINDINGS: Real-time fluoroscopy demonstrates the needle in the right hip joint. Patient's pain prior to procedure:06/30. Patient's pain following the procedure: 11/30. IMPRESSION: 1. Right hip joint injection of local anesthetic and steroid with decrease in the patient's presentin g pain. Reviewed, dictated and finalized at location A. IMPRESSION: 1. Right hip joint injection of local anesthetic and steroid with decrease in t he patient's presenting pain.
== END 2023-09-13 08:11 | disposition home or self-care (01) ==
PROVIDERS: PCP Emergency Medicine; Visit Provider Nurse Practitioner Family
DX: M16.11 Unilateral primary osteoarthritis, right hip (principal)
CPT/HCPCS: 20610; 77002; J1040; Q9966

== ENCOUNTER 2023-10-25 10:12 | Outpatient (CLI) | payer MEDICARE, MEDICAID, SELFPAY ==
--- NOTE | 2023-10-25 11:30 | NEURO_ITS ---
Impression: # Complains of right upper extremity pain and discomfort. # Not enough to make diagnosis of Carpal Tunnel Syndrome. # Normal needle/EMG exam. # Clinical correlation recommended. Nerve Conduction Studies Anti Sensory Summary Table Stim Site NR Peak (ms) P-T Amp (?V) Site1 Site2 Delta-P (ms) Dist (cm) Lc (m/s) Right Median Anti Sensory (2-3nd Digit) Wrist 3.4 29.5 Wrist 2-3nd Digit 3.4 14.0 41 Wrist 3.4 34.4 Wrist 2-3nd Digit 3.4 14.0 41 Right Radial Anti Sensory (Base 1st Digit) Wrist 2.4 16.8 Wrist Base 1st Digit 2.4 0.0 Right Ulnar Anti Sensory (5th Digit) Wrist 2.7 40.2 Wrist 5th Digit 2.7 14.0 52 Motor Summary Table Stim Site NR Onset (ms) O-P Amp (mV) Site1 Site2 Delta-0 (ms) Dist (cm) Lc (m/s) Right Median Motor (Abd Poll Brev) Wrist 3.5 5.5 Elbow Wrist 4.6 27.0 59 Elbow 8.1 6.2 Right Ulnar Motor (Abd Dig Minimi) Wrist 3.0 3.4 A Elbow Wrist 4.4 28.0 64 A Elbow 7.4 4.0 F Wave Studies NR F-Lat (ms) L-R F-Lat (ms) Right Median (Mrkrs) (Abd Poll Brev) 28.20 Right Ulnar (Mrkrs) (Abd Dig Min) 27.34 EMG Side Muscle Nerve Root Ins Act Fibs Amp Dur Recrt Comment Right 1stDorInt Ulnar C8-T1 Nml Nml Nml Nml Nml Right Ext Indicis Radial (Post Int) C7-8 Nml Nml Nml Nml Nml Right Ext Digitorum Radial (Post Int) C7-8 Nml Nml Nml Nml Nml Right BrachioRad Radial C5-6 Nml Nml Nml Nml Nml Right PronatorTeres Median C6-7 Nml Nml Nml Nml Nml Right Abd Poll Brev Median C8-T1 Nml Nml Nml Nml Nml MTDD
== END 2023-10-25 10:13 | disposition home or self-care (01) ==
PROVIDERS: PCP Emergency Medicine; Visit Provider Emergency Medicine
DX: R20.2 Paresthesia of skin (principal)
CPT/HCPCS: 95886; 95909

== ENCOUNTER 2023-11-16 15:11 | Outpatient (CLI) | payer MEDICARE, MEDICAID, SELFPAY ==
--- NOTE | ~2023-11-16 | XR_ITS ---
EXAM: XR shoulder RT min 2V DATE: 11/16/2023 15:38 HISTORY: M25.511 - Pain in right shoulder X 1 YR + . COMPARISON: 06/12/2022. FINDINGS: Normal mineralization. No fracture or dislocation. No lytic or blastic lesion. Mild AC aston nt hypertrophy. No erosion or periosteal change. Soft tissues within normal limits. IMPRESSION: Mild AC joint osteoarthritis. Reviewed, dictated and finalized at location K. IC DANCER
== END 2023-11-16 15:12 | disposition home or self-care (01) ==
PROVIDERS: PCP Emergency Medicine; Visit Provider Physician Assistant
DX: M19.011 Primary osteoarthritis, right shoulder (principal)
CPT/HCPCS: 73030

== ENCOUNTER 2023-12-21 13:20 | Outpatient (CLI) | payer MEDICARE, MEDICAID, SELFPAY ==
--- NOTE | ~2023-12-21 | XR_ITS ---
EXAMINATION: XR lg joint inject/asp w image DATE: 12/21/2023 14:20 INDICATION: Right hip arthritis. TECHNIQUE: A time-out was performed to verify the patient's name, date of , and procedure to b e performed. The procedure including the risks, benefits, and alternatives was discussed with the pat ient. Risks discussed included bleeding and infection. The patient understood the risks and agreed to proceed. The skin overlying the right hip joint was prepped and draped in usual sterile fashion. A nesthetic was administered with 1% lidocaine subcutaneously. A 22 G needle was advanced under fluoro scopic guidance into the joint. Subsequently, injectate consisting of 2 mL 0.5% bupivacaine and 1 mL 80 mg/mL Depo-Medrol was instilled. The needle was removed and the entry site was cleaned and dress ed. There were no immediate complications. Fluoroscopy exposure time was 0.1 minutes. The total numb er of images was 1. FINDINGS: Real-time fluoroscopy demonstrates the needle in the right hip joint. Patient's pain prior to procedure:9/10. Patient's pain following the procedure: 05/30. IMPRESSION: 1. Fluoroscopy guided right hip joint injection of local anesthetic and steroid with decrease in the patient's presenting pain. Reviewed, dictated and finalized at location A. 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
== END 2023-12-21 13:21 | disposition home or self-care (01) ==
LOC: ANHIMG 13:20
PROVIDERS: PCP Emergency Medicine; Visit Provider Nurse Practitioner Family
DX: M16.11 Unilateral primary osteoarthritis, right hip (principal)
CPT/HCPCS: 20610; 77002; J1040

== ENCOUNTER 2024-03-16 09:57 | Emergency (ER) | payer MEDICARE, MEDICAID, SELFPAY ==
--- NOTE | ~2024-03-16 | CT_ITS ---
EXAMINATION: CT abdomen pelvis wo con DATE: 03/16/2024 11:05 INDICATION: UTI. Lower abdominal pain TECHNIQUE: Computed tomography (CT) of the abdomen and pelvis was performed without intravenous contr ast. The dose-length product was 188.87 mGy-cm. Automated exposure control and iterative reconstructi on technique were employed. COMPARISON: CT dated 06/05/2021. FINDINGS: Lung bases are unremarkable. Heart size normal. No significant pleural or pericardial effus ion. The liver, spleen, pancreas, adrenal glands and kidneys are unremarkable. No hydronephrosis. No stones. Bladder is unremarkable. No abnormal pelvic masses or fluid collections. Nonobstructive bowel gas pattern. Colonic diverticulosis without evidence for diverticulitis. There is moderate lumbar sp ondylosis. No free air or free fluid. Gallbladder is present. No lymphadenopathy. IMPRESSION: 1. No acute abdominal abnormality. Reviewed, dictated and finalized at location B.
[2024-03-16 10:05] VITALS: BP 160/84; PULSE 76; RESP 17; TEMP 36.8; O2SAT 100
--- NOTE | 2024-03-16 10:12 | PC.NURSE ---
BS in room 93 (fasting)
[2024-03-16 10:15] LABS: Glucose Point of Care 93 mg/dl (65-105)
[2024-03-16 10:22] LABS: Appearance Urine Cloudy (Clear); Bacteria Urine None Seen /hpf; Bilirubin Urine 1+ (Negative); Blood Urine 3+ (Negative); Color Urine Dark Yellow (Yellow); Glucose Urine UA Negative (Negative); Ketones Urine Trace mg/dL (Negative); Leukocyte Esterase Ur 3+ LEU/UL (Negative); Nitrate Urine Negative (Negative); Non Pathogenic Casts 0-2; Protein Urine 1+ mg/dL (Negative); RBC Urine 51-100 /hpf (0-2); Specific Grav Ur 1.023 (1.001-1.035); Squamous Epithelial Cell Urine None Seen /hpf (Few); WBC Urine >100 /hpf (0-3); pH Urine 6.5 (5.0-9.0)
[2024-03-16 10:23] LABS: Add Urine Microscopic? YES
--- NOTE | 2024-03-16 10:32 | ED.FEMALEGU ---
HPI - Female Genitourinary General Chief complaint: Urogenital-Female Stated complaint: UTI SYMPTOMS Time Seen by Provider: 03/16/24 10:08 Source: patient Mode of arrival: ambulatory Limitations: no limitations History of Present Illness HPI Narrative: Patient is a 59 y/o female who presents to the ED with c/o UTI symptoms. Patient reports having symptoms over the last 3 days, including dysuria, urinary urgency and frequency with small void urines. States in the mornings, she is often only able to dribble small amounts of urine. Complains of some lower abdominal pain. Denies back or flank pain. Reports history of UTIs and states symptoms feel similar. Denies hematuria. Denies nausea, vomiting, fevers. Related Data Home Medications Medication Instructions Recorded Confirmed alprazolam 1 mg tablet 0.5 mg PO PRN 12/01/19 11/16/23 amlodipine 5 mg tablet 5 mg PO DAILY 12/01/19 11/16/23 duloxetine 60 mg capsule,delayed 60 mg PO DAILY 06/05/21 11/16/23 release Allergies Allergy/AdvReac Type Severity Reaction Status Date / Time kiwi Allergy Unknown Rash Verified 03/16/24 10:12 Review of Systems Review of Systems: CONSTITUTIONAL: Denies fever, chills, or sweats. GASTROINTESTINAL: See HPI GENITOURINARY: See HPI MUSCULOSKELETAL: Denies back pain, flank pain. All systems reviewed & are unremarkable except as noted in HPI and below PMFSH Past Medical History Medical History Anxiety Bleeding nose Constipation Degenerative joint disease (DJD) of hip Depression Dizziness Hypertension Moderate right ankle sprain Sleep disorder Sprain of medial collateral ligament of right knee, subsequent encounter Surgical History Surgical History No history of previous surgery Family History Family History Father Alcoholism Mother Kidney disorder Grandparent Diabetes mellitus Other Carcinoma of colon Hypertension Social History Social History Years smoked: 20 Smoking status: Former smoker Tobacco type: cigarettes Alcohol intake: current Drinks per week: 1 Substance use: never Substance use type: does not use Do You Feel Safe in your Home?: Yes Lack of Transportation: No Lack of Food: Sometimes True Current Housing: I Have Housing Concerned About Future Housing: No Difficulty Paying Gas/Electric Bills: No Difficulty Paying for Meds: No Currently Unemployed: No Education: High School Diploma/GED Difficulty w/ Childcare or Family Care: No Living arrangements: with family Gender identity (if verbalized by the patient): Female Spiritual care concerns: No Exam Narrative: GENERAL: Well appearing, well-nourished, non-toxic, in no acute distress. HEAD: Normocephalic, atraumatic. RESPIRATORY: Airway patent, respirations nonlabored. Clear to auscultation bilaterally, no rales, rhonchi, wheezing. CARDIOVASCULAR: Regular rate and rhythm ABDOMINAL: Soft, mild tenderness over suprapubic region, nondistended. Normoactive BS. No significant CVA tenderness w/ percussion. MUSCULOSKELETAL: Moves all extremities. No gross deformities. SKIN: Warm, dry, normal color. NEURO: A&O X3. Speech clear. PSYCHIATRIC: Mildly anxious appearing. Normal interaction. Course Vital Signs Vital signs: Vital Signs Temperature 98.2 F 03/16/24 10:05 Pulse Rate 76 03/16/24 10:05 Respiratory Rate 17 03/16/24 10:05 Blood Pressure 160/84 H 03/16/24 10:05 Pulse Oximetry 100 03/16/24 10:05 Oxygen Delivery Room Air 03/16/24 10:05 Temperature 98.2 F 03/16/24 10:05 Pulse Rate 76 03/16/24 10:05 Respiratory Rate 17 03/16/24 10:05 Blood Pressure 160/84 H 03/16/24 10:05 Pulse Oximetry 100 03/16/24 10:05 Oxygen Delivery Lucy
[2024-03-16] MEDS: CEPHALEXIN 500 MG CAPSULE PO (10:50)
== END 2024-03-16 11:58 | disposition home or self-care (01) ==
PROVIDERS: Emergency Provider Physician Assistant; PCP Emergency Medicine
DX: N30.01 Acute cystitis with hematuria (principal); F41.9 Anxiety disorder, unspecified; I10 Essential (primary) hypertension; Z87.891 Personal history of nicotine dependence
CPT/HCPCS: 74176; 81001; 82948; 87077; 87086; 87088; 87186; 99284; A9270

== ENCOUNTER 2024-03-23 16:23 | Outpatient (CLI) | payer MEDICARE, MEDICAID, SELFPAY ==
--- NOTE | ~2024-03-23 | MR_ITS ---
EXAMINATION: MR lumbar spine wo con DATE: 03/23/2024 17:17 INDICATION: Lumbago. TECHNIQUE: Magnetic resonance imaging (MRI) of the lumbar spine was performed without intravenous con trast. Sequences included sagittal T2-weighted FSE, sagittal T2-weighted FS FSE, sagittal T1-weighted FSE, and axial T2-weighted FSE. COMPARISON: Lumbar spine MRI 08/13/2023 FINDINGS: There is 4 degrees dextrocurvature of lumbar spine. Vertebral body heights are normal. Ther e is mildly decreased disc height at L3-L4 and severely decreased disc height at L5-S1. The distal sp inal cord signal intensity is normal. The conus medullaris is at L1-L2. The following disc levels are specifically discussed: L1-L2: The disc is bulging. There is mild right and moderate left facet joint osteoarthritis. There i s mild right neural foraminal stenosis. There is mild central canal stenosis. L2-L3: The disc is bulging. There is mild right and moderate left facet joint osteoarthritis. There i s mild bilateral neural foraminal stenosis. There is mild central canal stenosis. L3-L4: The disc is bulging. There is mild right and severe left facet joint osteoarthritis. There is mild bilateral neural foraminal stenosis. There is mild central canal stenosis. L4-L5: The disc is bulging. There is severe bilateral facet joint osteoarthritis. There is mild bilat eral neural foraminal stenosis. There is mild central canal stenosis. L5-S1: The disc is bulging and has an annular fissure. There is severe bilateral facet joint osteoart hritis. There is moderate right and mild left neural foraminal stenosis. There is mild central canal stenosis. IMPRESSION: 1. Severe lower lumbar spondylosis, stable from 08/13/2023. Reviewed, dictated and finalized at location E.
== END 2024-03-23 16:24 | disposition home or self-care (01) ==
LOC: ANHIMG 16:23
PROVIDERS: PCP Emergency Medicine; Visit Provider Nurse Practitioner Family
DX: M47.896 Other spondylosis, lumbar region (principal)
CPT/HCPCS: 72148

== ENCOUNTER 2024-05-03 10:17 | Outpatient (CLI) | payer MEDICARE, MEDICAID, SELFPAY ==
--- NOTE | ~2024-05-03 | MR_ITS ---
MRI of the cervical spine Clinical History: Cervicalgia Technique: Axial T2-weighted and gradient images, and sagittal T1-weighted, T2-weighted, and STIR greta ges were acquired. Findings: There is no fracture or subluxation of the cervical spine. Vertebral bodies maintain normal height and alignment. No suspicious bone marrow signal reality seen. At C2-C3, there is no significant disc bulge or herniation. No spinal canal stenosis, cord compressio n, or neural foraminal narrowing. At C3-C4, there is moderate degenerative disc narrowing. There is minimal disc osteophyte complex. Th ere is no canal stenosis or cord compression. There is probable minimal bilateral neural foraminal na rrowing with minimal bilateral facet arthropathy. At C4-C5, there is degenerative disc narrowing. There is minimal disc osteophyte complex, with possib le mild canal stenosis but no kwasi cord compression. There is severe right neural foraminal narrowin g. Left neural foramen preserved. At C5-C6, there is disc osteophyte complex without canal stenosis or cord compression. There is proba ble mild bilateral neural foraminal narrowing, left worse than right. At C6-C7, there is mild disc osteophyte complex. No canal stenosis or cord compression. There is prob able bilateral neural foraminal narrowing. No abnormal signal seen in the spinal cord. Paravertebral soft tissues are unremarkable. Impression: Moderate degenerative spondylosis from C3 through C6, as detailed above. Reviewed, dictated and finalized at [facility]. Impression: Moderate degenerative spondylosis from C3 through C6, as detailed above.
== END 2024-05-03 10:18 | disposition home or self-care (01) ==
LOC: ANHIMG 10:20
PROVIDERS: PCP Emergency Medicine; Visit Provider Nurse Practitioner Family
DX: M47.892 Other spondylosis, cervical region (principal)
CPT/HCPCS: 72141

== ENCOUNTER 2024-06-17 07:30 | Outpatient (CLI) | payer MEDICARE, MEDICAID, SELFPAY ==
--- NOTE | ~2024-06-17 | MR_ITS ---
MRI of the right hip Clinical history: Pain Technique: Coronal T1-weighted, T2-weighted, and proton-density fat-sat images, and axial T1-weighted and proton-density fat-sat images were acquired through the pelvis. Coronal T2-weighted images and c oronal, axial, and sagittal proton-density fat-sat images were acquired through the right hip. Findings: There is no fracture or avascular necrosis of either hip. No suspicious bone marrow signal abnormality seen in the proximal femoral or pelvic bones. There is diffuse high-grade chondromalacia of the right hip joint. There is prominent osteophyte form ation at the femoral head neck junction and at the superolateral right acetabular margin. Moderate to large right hip joint effusion is present, presumably reactive. Left hip joint is essentially intact , with possible minimal degenerative change. No left hip joint effusion. There is probable degenerati ve tearing of the right acetabular labrum. No muscle atrophy or edema present about the pelvis or right hip. Visualized tendons are intact. No s oft tissue mass or fluid collection evident. IMPRESSION: Advanced osteoarthritis of the right hip joint, as detailed above, with associated presumed reactive moderate to large right hip joint effusion and degenerative right acetabular labral tearing. Minimal degenerative change left hip joint. Reviewed, dictated and finalized at location . IMPRESSION: Advanced osteoarthritis of the right hip joint, as detailed above, with associa edmar presumed reactive moderate to large right hip joint effusion and degenerati ve right acetabular labral tearing. Minimal degenerative change left hip joint.
== END 2024-06-17 07:31 | disposition home or self-care (01) ==
PROVIDERS: PCP Emergency Medicine; Visit Provider Emergency Medicine
DX: M25.551 Pain in right hip (principal); M16.11 Unilateral primary osteoarthritis, right hip; M25.451 Effusion, right hip; S73.191A Other sprain of right hip, initial encounter
CPT/HCPCS: 73721

== ENCOUNTER 2024-06-18 09:33 | Outpatient (CLI) | payer MEDICARE, MEDICAID, SELFPAY ==
--- NOTE | ~2024-06-18 | MM_ITS ---
EXAMINATION: MM screening brianna BI w ericka HISTORY: Screening TECHNIQUE: Craniocaudal and mediolateral oblique 3-D tomosynthesis images were obtained and synthetic 2-D images were generated. CAD analysis was submitted and interpreted. COMPARISON: Comparison to multiple prior studies sequentially, with oldest reviewed study dated 07/2018. BREAST PARENCHYMAL COMPOSITION: Not dense: There are scattered areas of fibroglandular density. FINDINGS: There is no evidence of suspicious mass, calcification, or architectural distortion to sugg est malignancy in either breast. There has been no suspicious interval change. IMPRESSION: 1. No mammographic evidence of malignancy. 2. Recommend routine screening mammography in one year. BI-RADS Category 1: Negative Reviewed, dictated and finalized at location B.
== END 2024-06-18 09:34 | disposition home or self-care (01) ==
PROVIDERS: PCP Emergency Medicine; Visit Provider Emergency Medicine
DX: Z12.31 Encounter for screening mammogram for malignant neoplasm of breast (principal)
CPT/HCPCS: 77063; 77067

== ENCOUNTER 2024-07-11 13:37 | Outpatient (CLI) | payer MEDICARE, MEDICAID, SELFPAY ==
--- NOTE | ~2024-07-11 | CT_ITS ---
EXAMINATION: CT cervical spine wo con DATE: 07/11/2024 13:58 INDICATION: Chronic neck pain. Myelopathy and radiculopathy. TECHNIQUE: Computed tomography (CT) of the cervical spine was performed without intravenous contrast. Automated exposure control and iterative reconstruction technique were employed. The dose-length pro duct was 195.30 mGy-cm. COMPARISON: CT cervical spine 06/12/2022 FINDINGS: There is hypolordosis of cervical spine. Vertebral body heights are normal. There is modera tely decreased disc height at C2-C3 and severely decreased disc height from C3-C4 through C6-C7. The following disc levels are specifically discussed: C2-C3: There is mild bilateral uncovertebral joint osteoarthritis. There is mild bilateral facet join t osteoarthritis. There is no neural foraminal stenosis. There is no central canal stenosis. C3-C4: There is severe bilateral uncovertebral joint osteoarthritis. There is moderate right and ion re left facet joint osteoarthritis. There is mild bilateral neural foraminal stenosis. There is mild central canal stenosis. C4-C5: There is severe right and moderate left uncovertebral joint osteoarthritis. There is moderate bilateral facet joint osteoarthritis. There is moderate right neural foraminal stenosis. There is mil d central canal stenosis. C5-C6: There is severe bilateral uncovertebral joint osteoarthritis. There is severe right and modera te left facet joint osteoarthritis. There is moderate right and mild left neural foraminal stenosis. There is mild central canal stenosis. C6-C7: There is severe bilateral uncovertebral joint osteoarthritis. There is moderate bilateral face t joint osteoarthritis. There is mild bilateral neural foraminal stenosis. There is mild central ava l stenosis. C7-T1: There is no uncovertebral joint osteoarthritis. There is mild right and severe left facet join t osteoarthritis. There is mild left neural foraminal stenosis. There is no central canal stenosis. IMPRESSION: 1. Severe cervical spondylosis, stable from 06/12/2022. Reviewed, dictated and finalized at location A.
--- NOTE | ~2024-07-11 | CT_ITS ---
EXAMINATION: CT lumbar spine wo con DATE: 07/11/2024 13:58 INDICATION: Low back pain. Myelopathy and radiculopathy. TECHNIQUE: Computed tomography (CT) of the lumbar spine was performed without intravenous contrast. A utomated exposure control and iterative reconstruction technique were employed. The dose-length produ ct was 298.22 mGy-cm. COMPARISON: CT lumbar spine 06/12/2022 FINDINGS: There is 9 degrees dextrocurvature of lumbar spine. Vertebral body heights are normal. Ther e is mildly decreased disc height at L1-L2, L2-L3, L3-L4, and L4-L5 and severely decreased disc heigh t at L5-S1. The following disc levels are specifically discussed: L1-L2: The disc does not extend beyond the endplate margin. There is mild bilateral facet joint osteo arthritis. There is no neural foraminal stenosis. There is no central canal stenosis. L2-L3: The disc is bulging. There is mild right and severe left facet joint osteoarthritis. There is mild bilateral neural foraminal stenosis. There is mild central canal stenosis. L3-L4: The disc is bulging. There is mild right and moderate left facet joint osteoarthritis. There i s mild bilateral neural foraminal stenosis. There is mild central canal stenosis. L4-L5: The disc is bulging. There is moderate bilateral facet joint osteoarthritis. There is mild kobi ateral neural foraminal stenosis. There is mild central canal stenosis. L5-S1: The disc is bulging. There is severe bilateral facet joint osteoarthritis. There is moderate r ight and mild left neural foraminal stenosis. There is mild central canal stenosis. IMPRESSION: 1. Severe lower lumbar spondylosis, stable from 06/12/2022. Reviewed, dictated and finalized at location A.
== END 2024-07-11 13:38 | disposition home or self-care (01) ==
LOC: ANHIMG 13:37
PROVIDERS: PCP Emergency Medicine
DX: M51.36 Other intervertebral disc degeneration, lumbar region (principal); M25.551 Pain in right hip; G45.9 Transient cerebral ischemic attack, unspecified; M47.22 Other spondylosis with radiculopathy, cervical region; M47.896 Other spondylosis, lumbar region
CPT/HCPCS: 72125; 72131

== ENCOUNTER 2025-09-13 10:04 | Outpatient (CLI) | payer MEDICARE, MEDICAID, SELFPAY ==
--- NOTE | ~2025-09-13 | MM_ITS ---
EXAMINATION: MM screening [facility] BI w ericka HISTORY: Screening TECHNIQUE: Craniocaudal and mediolateral oblique 3-D tomosynthesis images were obtained and synthetic 2-D images were generated. CAD analysis was submitted and interpreted. COMPARISON: Comparison to multiple prior studies sequentially, with oldest reviewed study dated 02/27/2018. BREAST PARENCHYMAL COMPOSITION: Not dense: There are scattered areas of fibroglandular density. FINDINGS: There is no evidence of suspicious mass, calcification, or architectural distortion to suggest malignancy in either breast. There has been no suspicious interval change. IMPRESSION: 1. No mammographic evidence of malignancy. 2. Recommend routine screening mammography in one year. BI-RADS Category 1: Negative Reviewed, dictated and finalized at location O.
--- NOTE | ~2025-09-13 | DEXA_ITS ---
Bone Density Report Name: LUL SERRATO Age: 60 Sex: Female Ethnicity: White Date of : 1965 Indication: postmenopausal osteoporosis; Referring Provider: AMY REZA Study: Bone densitometry was performed. Exam Date: September 13, 2025 Accession number: [id number] Bone Density: Region BMD T-score Z-score Classification AP Spine(L1-L4) 0.864 -1.7 -0.1 Osteopenia Femoral Neck (Left) 0.712 -1.2 0.2 Osteopenia Total Hip (Left) 0.832 -0.9 0.2 Normal World Health Organization criteria for BMD impression classify patients as: Normal (T-score at or above -1.0), Osteopenia (T-score between -1.0 and -2.5), or Osteoporosis (T-score at or below -2.5). 10-year Fracture Risk(1): Major Osteoporotic Fracture 7.5% Hip Fracture 0.6% Reported Risk Factors: [place] (), Neck BMD=0.712, BMI=23.0 (1) FRAX(R) Version 3.08. Fracture probability calculated for an untreated patient. Fracture probability may be lower if the patient has received treatment. Previous Exams: Region Exam Age BMD T-score BMD Change BMD Change Date g/cm2 vs Baseline vs Previous AP Spine (L1-L4) 09/13/2025 60 0.864 -1.7 -0.044 (-4.8%) 0.098 (12.8%)* 02/10/2023 57 0.766 -2.6 -0.141 (-15.6% -0.141 (-15.6% 07/26/2019 54 0.908 -1.3 Total Hip(Left) 09/13/2025 60 0.832 -0.9 -0.098 (-10.5% 0.027 (3.3%) 02/10/2023 57 0.805 -1.1 -0.125 (-13.4% -0.125 (-13.4% 07/26/2019 54 0.930 -0.1 *Denotes significance at 95% confidence level, LSC for AP Spine = 0.022 g/cm2, LSC for Total Hip = 0.027 g/cm2 Clinical Information Provided by Patient: Has used the following medications: Vitamin D Patient maximum height was 62 Menopause Age: 46 No regular weight bearing exercise Onset of menses at age 12 Number of children 4 Impression: The patient has low bone mass, based on the Total Spine T-score. The patient has an estimated ten-year risk of hip fracture of 0.6% and an estimated ten-year risk of major fracture of 7.5%, based on the WHO FRAX algorithm. No significant bone loss was observed. Discussion: BONE DENSITY IS LOW AT ONE OR MORE SKELETAL SITES. This patient's lowest T-score is low at one or more skeletal sites. It meets the World Health Organization's (WHO) criteria for ?low bone mass? (T-score between -1.0 and -2.5). The patient's 10-year risk of fracture as calculated by FRAX is less than the threshold where pharmacological therapy is recommended by the National Osteoporosis Foundation (NOF). However, all treatment decisions require clinical judgment and consideration of individual patient factors, including patient preferences, comorbidities, previous drug use, risk factors not captured in the FRAX model (e.g., frailty, falls, vitamin D deficiency, increased bone turnover, interval significant decline in bone density) and possible under or overestimation of fracture risk by FRAX. The patient should follow a healthful lifestyle (good nutrition with adequate calcium and vitamin D, and appropriate weight-bearing exercise). Follow-Up: Consider repeating this study in 2 to 3 years to reassess this patient's status, or sooner if there is some new clinical indication. Reported by: TIESHA on 09/13/2025 10:55:00 AM. Reviewed, dictated and finalized at location A.
--- OUTSIDE RECORDS SUMMARY | 2025-09-13 10:39 | XMS_ITS | Clinical Summary ---
Author Organization [facility] Address [address] [place] [id number] Care Team Providers Care Events Assistant Name Role Phone Quinton Richardson MD Primary Care Provider Allergies Active Allergy Reactions Criticality Noted Date Comments Bupropion Rash Medium 02/26/2019 Clavulanic Acid Stomach upset,Unknown Low 9 Kiwi (Actinidia Chinensis) Anaphylaxis High 03/23/20 22 Penicillins Other (See comments),Stomach upset,Vomiting High 02/09/2019 C-diff Sulfamethoxazole-Trimethopr im Unknown 03/23/2022 Medications ALPRAZolam (XANAX) 1 mg tabletIndication s:Anxiety with Depression,anxie ty Take 0.5 mg by mouth nightly as needed for anxiety or sleep 02/11/[address] (CYMBALTA) 60 mg capsuleIndicatio ns:Anxiety with Depression Take 1 capsule (60 mg total) by mouth daily after lunch Active fluticasone propionate (FLONASE) 50 mcg/actuation nasal sprayIndications :Allergic Rhinitis Administer 1 spray into each nostril as needed for rhinitis or allergies 03/23/20 22 Active rosuvastatin (CRESTOR) 10 mg tabletIndication s:hyperlipidemia Take 1 tablet (10 mg total) by mouth daily after lunch Active spironolactone (ALDACTONE) 100 mg tabletIndication s:Skin Take 1 tablet (100 mg total) by mouth daily after lunch Active amLODIPine (NORVASC) 5 mg tabletIndication s:hypertension Take 1 tablet (5 mg total) by mouth every morning 08/05/20 24 Active cholecalciferol (VITAMIN D-3) 50,000 unit capsuleIndicatio ns:Vitamin D Deficiency Take 1 capsule (50,000 Units total) by mouth once a week Tuesday Active alendronate (FOSAMAX) 70 mg tabletIndication s:Post-Menopausa l Osteoporosis Take 1 tablet (70 mg total) by mouth every 7 days HOLD 4-6 WEEKS AFTER SURGERY. DISCUSS WITH YOUR SURGEON PRIOR TO RESTARTING Take in the morning with a full glass of water, on an empty stomach, and do not take anything else by mouth or lie down for the next 30 min. 10/24/20 24 Active Additional Information Patient taking differently:70 mg oral Every 7 days, HOLD 4-6 WEEKS AFTER SURGERY. DISCUSS WITH YOUR SURGEON PRIOR TO RESTARTINGTake in the morning with a full glass of water, on an empty stomach, and do not take anything else by mouth or lie down for the next 30 min.Saturdays, Indications: Post-Menopausal Osteoporosis, Informant: Self, Reported on 06/18/2025 naloxone (NARCAN) 4 mg/actuation spray,non-aeroso l CALL 911. ADMINISTER A SINGLE SPRAY INTRANASALLY INTO ONE NOSTRIL UPON SIGNS OF OPIOID OVERDOSE. MAY REPEAT AFTER 3 MINUTES IF NO RESPONSE. 09/27/20 24 Active multivitamin tabletIndication s:Vitamin Deficiency Prevention Take 1 tablet by mouth every morning Active MAGNESIUM ORALIndications: supplement Take 1 tablet by mouth every morning Active senna-docusate (PERICOLACE) 8.6-50 mgIndications:co nstipation Take 1 tablet by mouth 2 (two) times a day 60 tablet 03/07/20 25 Active HYDROcodone-acet aminophen (NORCO) 10-325 mg per tabletIndication s:Pain Take 1 tablet by mouth every 4 (four) hours as needed for pain 42 tablet 03/07/20 25 Active methocarbamoL (ROBAXIN) 750 mg tablet Take 1 tablet (750 mg total) by mouth every 8 (eight) hours 90 tablet 04/19/20 25 Active Active Problems Problem Noted Date Diagnosed Date Cervical radiculopathy 01/02/2025 Myeloradiculopathy 01/02/2025 Chronic neck pain 01/02/2025 Osteoarthritis of right hip, unspecified osteoarthritis type 09/26/2024 Spondylosis of cervical laney on without myelopathy or radiculopathy 09/25/2024 Primary osteoarthritis of right hip 08/02/2024 Neck pain 12/26/2023 Trigger thumb of right hand 12/26/2023 Deafness, onychodystrophy, o steodystrophy, and intellectual disability syndrome 08/18/2023 Depressive disorder 08/18/2023 Disorder of globe 08/18/2023 Dystrophia unguium 08/18/2023 Seasonal allergies 08/18/2023 Pain in right hand 08/16/2023 Rash and other nonspecific skin eruption 022 Benign hypertension 09/26/2019 Irritable bowel syndrome 09/26/2019 Lumbar radiculopathy 08/20/2019 Overview (06/25/2024): Added automatically from request for surgery [id number] Added automatically from request for surgery [id number] Postmenopausal bleeding 05/22/2019 Sacroiliitis 03/20/2019 Anxiety 09/15/2017 Overview (06/25/2024): +/- control on fluoxetine Lumbago with sciatica, right side 09/15/2017 Overview (06/25/2024): chronic since fall 1 y ago Primary insomnia 09/15/2017 ONESIMO (generalized anxiety disorder) 08/21/2014 Abnormal mammogram 08/01/2014 Encounters Date Type Department Care Team Description 06/24/2025 Orders Only [facility] Medicine Neurosurgery [address] [place] [address] Office [facility] [address] [place] [id number] Javid Sesay DO 06/18/2025 2:15 PM CDT Office Visit [facility] Medicine Neurosurgery [address] [place] [address] Office [facility] [address] [place] [phone] Javid Sesay DO Chronic neck pain (Primary Dx); Cervical radiculopathy; Myeloradiculopathy; Paraspinal mass 06/18/2025 11:43 AM CDT - 06/18/2025 11:59 PM CDT Hospital Encounter [id number] [address] [facility] [address] [place] [address] Cervical radiculopathy; Chronic neck pain Discharge Disposition: Discharge to home or self care from Last 3 Months Immunizations Immunization Administration Dates Next Due Influenza, Quadrivalent, Spl it, Preservative Free, Intramuscular 08/25/2020,09/25/2018,11/09/2017 Pneumococcal Polysaccharide PPV23 07/03/2013 Tdap 02/21/2014 Surgical History Surgery Date Site/Laterality Comments TUBAL LIGATION 1998 ESOPHAGOSCOPY / EGD HM FIT COLON RECTAL CANCER SCREENING HIP SURGERY Medical History Medical History Date Comments Anxiety Depression Diverticulitis of colon Kidney infection Low back pain Family History Medical History Relation Name Comments Alcohol abuse Father Dillan Shaikh Cancer Maternal Grandmother Crystal Contreras/colon ca ncer Cancer Mother Kidney disease Cancer Paternal Grandmother Leukemia Anesthesia problems Neg Hx Relation Name Status Comments Father Dillan Chavezr Maternal Grandmother Crystal Contreras/colon cancer Mother Kidney disease Paternal Grandmother Leukemia Social History Tobacco Use Types Packs/Day Years Used Date Smoking Tobacco: Former Cigarettes 0.3 37 1 - 2018 Vaping 2021 Smokeless Tobacco: Never Tobacco Cessation:Counseling Given: No AUDIT-C Answer Date Recorded Q1: How often do you have a drink containing alcohol? Never 02/18/2025 Q2: How many drinks containi ng alcohol do you have on a typical day when you are drinking? Patient does not drink Q3: How often do you have si x or more drinks on one occasion? Never 02/18/2025 Personal Safety Answer Date Recorded Have you ever been in or are you currently in a harmful physical or emotional relationship or is someone making you feel afraid or unsafe? 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 Gender Identity Female 08/17/2024 9:13 AM CDT Sexual Orientation Not on file Obstetrics History Para Term AB IAB SAB Ectopic Multiple Livin g Live Births 4 4 Date Outcome GA Total Labor Labor/2nd/3rd Weight Sex Type Anes PTL Edilia A1 A5 Name Clin Para Para Para Para Last Filed Vital Signs Vital Sign Reading Time Taken Comments Blood Pressure 126/65 03/07/2025 7:42 AM CDT Pulse 70 03/07/2025 7:42 AM CDT Temperature 36.8 C (98.3 F) 03/07/2025 7:42 AM CDT Respiratory Rate 16 03/07/2025 7:42 AM CDT Oxygen Saturation 97% 03/07/2025 7:42 AM CDT Inhaled Oxygen Concentration - - Weight 54.9 kg (121 lb) 06/18/2025 12:06 PM CDT Height 157.5 cm (5' 2) 06/18/2025 12:06 PM CDT Body Mass Index 22.13 06/18/2025 12:06 PM CDT Plan of Treatment Health Maintenance Due Date Last Done Comments Colon Cancer Screening-Colonoscopy 1963 Depression Screening 1963 Regular Well Visit/Exam 18-64 1981 Zoster Vaccine (1 of 2) 2013 Cervical Cancer Screening 07/03/2014 07/03/2013 Breast Cancer Screening-Mammogram 09/29/2017 09/29/2016, 09/03/2015, 08/01/2014, Additional history exists DTaP/Tdap/Td Vaccine (2 - Td or Tdap) 02/22/2024 02/21/2014 Covid-19 Vaccine (2 - season) 2025 02/27/2021 Influenza Vaccine (#1) 2025 , 09/25/2018, 11/09/2017 Pneumococcal vaccine <65 Aged Out 07/03/2013 No longer eligible based on patient's age to complete this topic Hepatitis B Screening Completed 03/07/2023 Hepatitis C Screening Completed 03/07/2023 Goals Goal Patient Goal Type Associated Problems Recent Progress Patient-Stated? Author CCM Chronic Pain Care Plan Chronic Care Management Charlene Genao, RN Note: Problem: Chronic Pain Goals: 1. Minimize further functional decline 2. Maximize quality of life 3. Control pain Strategies: - Activity/exercise program recommendation - Conservative stepwise pain medicine strategy with multi-disciplinary approach - Recommend healthy lifestyle strategies and compensatory methods as needed CCM Fall Prevention Care Plan Chronic Care Management Charlene Genao, RN Note: Problem: Falls Goals: 1. Maintain strength and balance as able 2. Prevent falls and fractures 3. Maximize safety of living environment Strategies: - Educate on fall prevention and follow-up as needed - Recommend activity/exercise program - Refer to allied health as needed - Recommend healthy lifestyle strategies and compensatory methods as needed Medical Devices Implanted Type Area Fire Manager Device Identifier Shelf Expiration Date Model / Serial / Lot Depuy Orthopa[employer] Shell Acetabular Emsys Shl Mlthole 48 [id number] - [id number] Implanted:Qty: 1 on 09/26/2024 at [facility] Right: Hip [employer] 03/20/2034 [id number] / / [id number] Dep[employer] Bodega 6.5mm 30mm Acetabular Cancellous Screw Bone Revision 121 - [id number] Implanted:Qty: 1 on 09/26/2024 at [facility] Right: Hip [employer] 05/20/2034 121-30-500 / / [id number] [employer] Bodega 6.5mm 20mm Acetabular Cancellous Screw Bone Sterile 121 - [id number] Implanted:Qty: 1 on 09/26/2024 at [facility] Right: Hip [employer] 06/20/2034 1217-20-500 / / [id number] Dep[employer] Liner Acetabular Emsys Lnr Aox N 48x36 [id number] - [id number] Implanted:Qty: 1 on 09/26/2024 at [facility] Right: Hip [employer] 02/18/2029 [id number] / / [id number] Dep[employer] Actis Collared Hip 11/03 4 Standard Offset Stem Femoral [id number] - [id number] Implanted:Qty: 1 on 09/26/2024 at [facility] Right: Hip [employer] 08/20/2034 [id number] / / [id number] [employer] Articul/Froylan 36mm Cementless Hip +1.5mm 12/ Taper Head Femoral Latex Free [id number] - [id number] Implanted:Qty: 1 on 09/26/2024 at [facility] Right: Hip [employer] 07/21/2029 [id number] / / [id number] Glob Medical Plate Spine Anterior Cervical Level 2 Acp 32mm Titanium [id number] - [id number] Implanted:Qty: 1 on 03/06/2025 by Javid Sesay DO at [facility] [id number] / / Nuv[employer] Inc Screw Spinal Anterior Cervical Self Drilling Variable Solid Acp 3.5x15mm [id number] - [id number] Implanted:Qty: 2 on 03/06/2025 by Javid Sesay DO at [facility] [id number] / / Nuv[employer] Inc Screw Spinal Anterior Cervical Self Drilling Variable Solid Acp 3.5x15mm [id number] - [id number] Implanted:Qty: 2 on 03/06/2025 by Javid Sesay DO at [facility] [id number] / / Nuv[employer] Inc Screw Spinal Anterior Cervical Self Tapping Solid Acp 3.5x17mm [id number] - [id number] Implanted:Qty: 1 on 03/06/2025 by Javid Sesay DO at [facility] [id number] / / Nuv[employer] Inc Screw Spinal Anterior Cervical Self Drilling Solid Acp 4.0x17mm [id number] - [id number] Implanted:Qty: 1 on 03/06/2025 by Javid Sesay DO at [facility] [id number] / / Nuv[employer] Inc Screw Spinal Anterior Cervical Self Drilling Solid Acp 3.5x17mm [id number] - [id number] Implanted:Qty: 2 on 03/06/2025 by Javid Sesay DO at [facility] Spine Cervical [facility] [id number] / / Ar[employer]rex Inc Graft Bone Filler Scaffold Arthrocell Plus 1.0cc Abs-2090-01 - [id number] - [id number] Implanted:Qty: 1 on 03/06/2025 by Javid Sesay DO at [facility] Spine Cervical [employer] 12/18/2025 ABS-2090-01 / [id number] / Glob[employer] Cage Spinal Cervical 7 Degree Acif Hedron [id number] Titanium Porous 1211.4626s - [id number] Implanted:Qty: 1 on 03/06/2025 by Javid Sesay DO at [facility] Spine Cervical [employer] 1211.4626S / / Gl[employer] Cage Spinal Cervical 7 Degree Acif Hedron [id number] Titanium Porous 1211.4626s - [id number] Implanted:Qty: 1 on 03/06/2025 by Javid Sesay DO at [facility] Spine Cervical [employer] 1211.4626S / / Procedures Procedure Name Priority Date/Time Associated Diagnosis Comments XR SPINE CERVICAL 2 OR 3 VIEWS Schedule Routine, Read Routine (OP Routine) 06/18/2025 11:49 AM CDT Cervical radiculopathy Chronic neck pain HEPATITIS C ANTIBODY Routine 03/07/2023 8:04 AM CDT Encounter for donation of kidney from Last 3 Months or Most Recently Relevant to Health Maintenance Results * XR Spine Cervical 2 or 3 Views (06/18/2025 11:49 AM CDT) Anatomical Region Laterality Modality Spine N/A Computed Radiogr aphy 06/18/2025 1:28 PM CDT Impressions 06/18/2025 1:28 PM CDT Unchanged anterior cervical discectomy and instrumented fusion C4-C6. Electronically signed by: Earnest Silva M.D. Narrative 06/18/2025 1:28 PM CDT EXAMINATION: XR SPINE CERVICAL 2 OR 3 VIEWS HISTORY: Neck pain FINDINGS: 2 views of the cervical spine were performed with comparison made to 04/16/2025. There is anterior discectomy and instrumented fusion C4-C6. There is moderate degenerative disc disease at the adjacent levels. Prevertebral soft tissues appear normal. Instrumentation appears intact. Procedure Note Earnest Silva MD PhD - 06/18/2025 EXAMINATION: XR SPINE CERVICAL 2 OR 3 VIEWS HISTORY: Neck pain FINDINGS: 2 views of the cervical spine were performed with comparison made to 04/16/2025. There is anterior discectomy and instrumented fusion C4-C6. There is moderate degenerative disc disease at the adjacent levels. Prevertebral soft tissues appear normal. Instrumentation appears intact. IMPRESSION: Unchanged anterior cervical discectomy and instrumented fusion C4-C6. Electronically signed by: Earnest Silva M.D. Javid Sesay DO IMG XR PROCEDURES Final Result * Hepatitis C antibody (03/07/2023 8:04 AM CDT) Hep C Ab NON-REACTI VE NON-REACT STEFF [facility] SIGNAL TO CUT-OFF 0.04 <1.00 [facility] Comment: HCV antibody was non-reactive. There is no laboratory evidence of HCV infection. In most cases, no further action is required. However, if recent HCV exposure is suspected, a test for HCV RNA (test code 46139) is suggested. For additional information please refer to http://education.[employer]/faq/PAB86x7 (This link is being provided for informational/ educational purposes only.) Blood 03/07/2023 8:04 AM CDT 03/07/2023 8:07 AM CDT Narrative [facility] - 03/08/2023 6:10 PM CDT FASTING:YES FASTING: YES Sam Munoz MD LAB MICROBIOLOGY - GENERAL ORDE MACKENZIE Final Result [facility] [id number] [address] [place] [phone] from Last 3 Months or Most Recently Relevant to Health Maintenance Insurance [facility] [place] [address] [facility] MEDICARE ADVANTAGE IDPA Advance Directives For more information, please contact: [phone] * Full Code (Latest Code Status on File) Date Activated Date Inactivated Comments 03/06/2025 4:54 PM 03/07/2025 5:44 PM * Full Code Date Activated Date Inactivated Comments 09/26/2024 12:31 PM 09/27/2024 2:28 PM Care Teams Events Assistant Relationship Specialty Start Date End Date Quinton Richardson MD PCP - General 01/12/19
--- OUTSIDE RECORDS SUMMARY | 2025-09-13 10:39 | XMS_ITS | Encounter Summary ---
Author Organization [facility] Address [address] [place] [address] Care Team Providers Care Squeegee Tender Name Role Phone Quinton Richardson MD Primary Care Provider [phone] Reason for Referral * Surgical (Routine) - Closed Specialty Diagnoses / Procedures Referred By Juventino finley Referred To Contact Procedures Case request operating room: INJECTION EPIDURAL TRANSFORAMINAL L5-S1, S1 Catrachita Ortega NP [address] [facility] [address] [place] [address] Phone: tel: [phone] fax: Referral ID Status Reason Start Date Expiration Date Visits Re quested Visits Authorized [id number] Closed 05/04/2019 06/03/2020 1 1 Encounter Details Date Type Department Care Team (Late st Contact Info) Description 05/04/2019 Prep for Procedure [facility] [place] [address] [phone] Catrachita Ortega NP 3 [facility] [address] [place] [phone] (Work) Social History Tobacco Use Types Packs/Day Years Used Date Smoking Tobacco: Every Day Cigarettes Smokeless Tobacco: Never Alcohol Use Standard Drinks/Week Comments No 0 (1 standard drink = 0.6 oz pur e alcohol) AUDIT-C Answer Date Recorded Frequency of Alcohol Consumption Never 03/20/2019 Average Number of Drinks Not on file 019 Frequency of Binge Drinking Not on file 02/21 Comments No Sex and Gender Information Value Date Recorded Sex Assigned at Not on file Legal Sex Female 2:07 PM CDT Gender Identity Not on file Sexual Orientation Not on file documented as of this encounter Plan of Treatment Scheduled Orders Name Type Priority Associated Diagnoses Order Schedule Case request operating room: INJECTION EPIDURAL TRANSFORAMINAL L5-S1, S1 Case Request Routine Once fo r 1 Occurrences starting 05/04/2019 until 05/04/2019 documented as of this encounter Visit Diagnoses Not on filedocumented in this encounter Care Teams Squeegee Tender Relationship Specialty Start Date End Date Quinton Richardson MD PCP - General FAMILY PRACTICE 03/20/19 documented as of this encounter
--- OUTSIDE RECORDS SUMMARY | 2025-09-13 10:39 | XMS_ITS | Clinical Summary ---
Author Organization [facility] Address [address] [place] [address] Care Team Providers Care Sign Hanger Supervisor Name Role Phone Quinton Richardson MD Primary Care Provider [phone] Source Comments [facility] [employer],non-owned Affiliates and Associated Physician Practices is amultiple site organization consisting of ambulatory clinics and hospital sitesin [place], [place], [place] and [place]. This disclosure is being madepursuant to the Care Everywhere program and may not contain all information available regarding this patient. Last updated 18.[facility] [employer] Allergies Active Allergy Reactions Criticality Noted Date Comments Amoxicillin Other 02/26/2019 C-diff Kiwi Extract Unknown 03/23/2022 Sulfamethoxazole W-Trimethoprim Unknown 01/2022 Bupropion Rash Medium 02/26/2019 Medications * Be aware that medications may not be up to date on this document. Alwaysverify current medications with the patient. multivitamin daily (THERAGRAN) tablet Take 1 Tab by mouth once daily. 0 3 Active Cyanocobalamin (B-12 PO) Active VITAMIN E PO Active Ascorbic Acid (VITAMIN C) 500 MG Active Cholecalciferol (VITAMIN D-3 PO) Act janett FLUoxetine (PROZAC) 40 MG capsuleIndicatio ns:ONESIMO (generalized anxiety disorder) Take 1 Cap by mouth once daily 90 Cap 3 6 Active Additional Information Patient not taking.Reported on 03/23/2022 meloxicam (MOBIC) 7.5 MG tablet Take 1 tablet by mouth once daily 30 tablet 5 7 Active Additional Information Patient not taking.Reported on 03/23/2022 ALPRAZolam (XANAX) 1 MG tablet TAKE ONE TABLET BY MOUTH AT BEDTIME NEEDED FOR ANXIETY 30 tablet 8 Active venlafaxine XR 24hr (EFFEXOR XR) 150 MG capsule Take 150 mg by mouth daily with breakfast Active traMADol (ULTRAM) 50 MG tablet Take 50 mg by mouth every 6 hours as needed Active famotidine (PEPCID) 40 MG tablet Take 40 mg by mouth once daily Active amLODIPine (NORVASC) 5 MG tablet Take 5 mg by mouth once daily Active meclizine (ANTIVERT) 25 MG tablet Take 25 mg by mouth 3 times daily as needed Active dicyclomine (BENTYL) 20 MG tablet Take 20 mg by mouth 4 times daily Active methylPREDNISolo ne (MEDROL DOSEPAK) 4 MG tablet Take by mouth as directed 1 Each 9 Active Additional Information Patient not taking.Reported on 03/23/2022 DULoxetine (CYMBALTA) 60 MG capsule Take 60 mg by mouth once daily Active clobetasol (TEMOVATE) 0.05 % ointmentIndicati ons:Rash and other nonspecific skin eruption Apply to affected areas on both lower legs twice daily as needed. 30 days supply. 60 g 1 2 Active clotrimazole-bet amethasone (LOTRISONE) 1-0.05 % cream APPLY TOPICALLY TWICE DAILY FOR 2 WEEKS TO THE AFFECTED AND SURROUNDING AREAS OF SKIN IN THE MORNING AND EVENING. 2 Active vitamin D, ergocalciferol, (DRISDOL) 1.25 MG (68944 UT) capsule Take 50,000 Units by mouth every 7 days 2 Active mupirocin (BACTROBAN) 2 % ointment APPLY A SMALL AMOUNT TO THE AFFECTED AREA(S) THREE TIMES DAILY 1 Active clindamycin (CLEOCIN) 300 MG capsule TAKE 1 CAPSULE BY MOUTH 4 TIMES DAILY UNTIL GONE 1 Active gabapentin (NEURONTIN) 300 MG capsule Take 1 capsule by mouth as directed 1 Active fluticasone propionate (FLONASE) 50 MCG/ACT nasal spray [place] 2 (two) sprays into each nostril once daily 48 g 4 2 Active alendronate (Fosamax) 70 MG tablet Take 1 (one) tablet by mouth once daily after breakfast 3 Active ibuprofen (Motrin) 600 MG tablet Take 1 (one) tablet by mouth 3 times daily as needed For pain. 2 Active terbinafine (LamISIL) 250 MG tablet Take 1 (one) tablet by mouth once daily 3 Active Active Problems Problem Noted Date Diagnosed Date Rash and other nonspecific skin eruption 022 Lumbar radiculopathy 08/20/2019 Overview (03/22/2022): Added automatically from request for surgery [id number] Postmenopausal bleeding 05/22/2019 Sacroiliitis 03/20/2019 ONESIMO (generalized anxiety disorder) 08/21/2014 Abnormal mammogram 08/01/2014 Screening cholesterol level 02/21/2014 Overview (02/21/2014): (10/2013) = T mg/dl, LDL: 86 mg/dl, HDL: 94 mg/dl, TC: 189 mg/dl Tobacco abuse 12/11/2012 Immunizations Immunization Administration Dates Next Due PNEUMOCOCCAL PPSV23 07/03/2013 TDAP (7yrs+) 02/21/2014 Family History Medical History Relation Name Comments Coronary Artery Disease,premature <55 male Father Colon Cancer after age 50 or unknown Maternal Grandmot her Cancer Paternal Grandmother Leukemi a Cancer - Breast Neg Hx Relation Name Status Comments Father Maternal Grandmother Paternal Grandmother Social History Tobacco Use Types Packs/Day Years Used Date Smoking Tobacco: Light Smoker Cigarettes 0.3 29 Started: 985; Last attempted to quit: 11/21/2013 Smokeless Tobacco: Never Tobacco Cessation:Ready to Q uit: No; Counseling Given: No Comments:Passive smoker maybe 4 cigarettes a day Alcohol Use Standard Drinks/Week Comments Yes 0 (1 standard drink = 0.6 oz pur e alcohol) occ Comments No Sex and Gender Information Value Date Recorded Sex Assigned at Not on file Legal Sex Female 4:36 PM NON PROFIT FINANCIAL CONTROLLER Gender Identity Not on file Sexual Orientation Not on file 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 Not on file Not on file Last Filed Vital Signs Vital Sign Reading Time Taken Comments Blood Pressure 139/89 03/23/2022 2:13 PM CDT Pulse 70 03/23/2022 2:13 PM CDT Temperature 36.8 C (98.2 F) 03/23/2022 2:13 PM CDT Respiratory Rate 16 07/15/2014 10:4 6 AM CDT Oxygen Saturation 98% 02/10/2018 1:24 PM CDT Inhaled Oxygen Concentration - - Weight 61.1 kg (134 lb 12.8 oz) 03/23/2022 2:13 PM CDT Height 157.5 cm (5' 2) 03/23/2022 2:13 PM CDT Body Mass Index 24.66 03/23/2022 2:13 PM CDT Plan of Treatment Health Maintenance Due Date Last Done Comments COLOGUARD (AGES 45-75) - COLON CA SCREENING 1963 CT COLONOGRAPHY - COLON CA SCREENING 1965 FIT - COLON CA SCREENING 1965 FLEX SIG - COLON CA SCREENING 1963 HIV SCREENING 1978 HEPATITIS C SCREENING 02/26/1981 ZOSTER VACCINE (1 of 2) 2013 PNEUMOCOCCAL VACCINE 50+ (2 of 2 - PCV) 07/03/2014 07/03/2013 MAMMOGRAM 09/29/2018 09/29/2016, 08/21, 08/01/2014, Additional history exists LIPID TESTING 10/23/2018 10/23/2013, 12/08/2012 DTAP/TDAP/TD VACCINES (2 - Td or Tdap) 02/22/2024 02/21/2014 COLON MONITORING 07/15/2024 07/15/2014 COLONOSCOPY - COLON CA SCREENING 07/15/2024 07/15/2014 Colorectal Cancer Screening 07/15/2024 DEPRESSION SCREENING 11/21/2024 COVID-19 VACCINE ( - season) 2025 INFLUENZA VACCINE (#1) 2025 Respiratory Syncytial Virus (RSV) Vaccine Pt: or over 60 yrs (1 - 1-dose 75+ series) 2038 HEPATITIS B VACCINE Aged Out No longe r eligible based on patient's age to complete this topic HIB VACCINE Aged Out No longer eligi ble based on patient's age to complete this topic HPV VACCINE Aged Out No longer eligi ble based on patient's age to complete this topic MENINGOCOCCAL (Group B) VACCINE SHARED DECISION-MAKING Aged Out No longer eligible based on patient's age to complete this topic MENINGOCOCCAL GROUPS A/C/Y/W VACCINE Aged Out No longer eligible based on patient's age to complete this topic Goals Goal Patient Goal Type Associated Problems Recent Progress Patient-Stated? Author Quit smoking / using tobacco Lifestyle Not on track( 014 11:09 AM CDT) No Emmanuelle Soni Procedures Procedure Name Priority Date/Time Associated Diagnosis Comments MAMMO BILAT SCREENING Routine 09/29/2016 8:50 AM NON PROFIT FINANCIAL CONTROLLER Visit for screening mammogram ENDOSCOPY, COLON, SCREENING Routine 07/15/2014 9:49 AM CDT LIPID PROFILE Routine 12/08/2012 11:12 AM NON PROFIT FINANCIAL CONTROLLER Screening cholesterol level from Last 3 Months or Most Recently Relevant to Health Maintenance Results * MAMM SCREENING DIGITAL IMAGE BILAT G0202 (09/29/2016 8:50 AM NON PROFIT FINANCIAL CONTROLLER) Anatomical Region Laterality Modality Breast Bilateral Mammography 09/29/2016 1:43 PM NON PROFIT FINANCIAL CONTROLLER Impressions 09/29/2016 1:44 PM NON PROFIT FINANCIAL CONTROLLER No mammographic evidence of malignancy. BI-RADS Category 1: Negative Examination. Recommendation: Resume routine yearly mammography schedule for women over age 40 or return sooner if clinically indicated. Your patient completed a computer based breast cancer risk assessment survey. Based on the information provided by your patient, the survey results indicate that she is NOT AT INCREASED RISK to develop a breast cancer. Additional quantitative risk model data + patient history details have been scanned as a document/letter in the [facility] EMR (media tab). If there are questions regarding this information or our Cancer Genetics Risk Assessment Program, please do not hesitate to contact [phone]. Narrative 09/29/2016 1:44 PM NON PROFIT FINANCIAL CONTROLLER Bilateral mammography. Most recent comparison: 2014 History: Screening mammogram. Technique: Bilateral Breasts. Mammography views included: CC and MLO. Images interpreted with CAD. Following current [facility] protocol, 3D mammographic tomosynthesis images were obtained and reviewed on a dedicated viewing station. FINDINGS: Breast composition: Scattered areas of fibroglandular density. No suspicious microcalcifications, masses or areas of architectural distortion. us Radha Ortiz MD MAMMO ORDERABLES Final Result * ENDOSCOPY, COLON, SCREENING (07/15/2014 9:49 AM CDT) Report Endoscopy POC __ _ Patient Name: Lul Shaikh Procedure Date: 07/15/2014 9:49 AM Date of : 1965 Admit Type: Outpatient Age: 49 Gender: Female Race: Unknown Attending MD: Ben Irving MD __ _ Procedure: Colonoscopy Indications: Screening for colon cancer: Colorectal cancer in distant relative(s), Colon cancer screening in patient at increased risk: Family history of colon polyps Providers: Ben Irving MD (Doctor) Referring MD: Radha Ortiz MD (Referring MD) Medicines: Monitored Anesthesia Care Complications: No immediate complications. __ _ Procedure: Pre-Anesthesia Assessment: - Prior to the procedure, a History and Physical was performed, and patient medications, allergies and sensitivities were reviewed. The patient's tolerance of previous anesthesia was reviewed. - The risks and benefits of the procedure and the sedation options and risks were discussed with the patient. All questions were answered and informed consent was obtained. - Patient identification and proposed procedure were verified prior to the procedure by the physician, the nurse, the anesthesiologist and the sales producer. The procedure was verified in the pre-procedure area in the procedure room in the endoscopy suite. - After reviewing the risks and benefits, the patient was deemed in satisfactory condition to undergo the procedure. - The anesthesia plan was to use monitored anesthesia care (MAC). After I obtained informed consent, the scope was passed under direct vision. Throughout the procedure, the patient's blood pressure, pulse, and oxygen saturations were monitored continuously. The Colonoscope was introduced through the anus and advanced to the terminal ileum. The colonoscopy was performed without difficulty. The patient tolerated the procedure well. The quality of the bowel preparation was excellent except the cecum was poor. Findings: The perianal and digital rectal examinations were normal. The terminal ileum appeared normal. Multiple small and large-mouthed diverticula were found in the sigmoid colon, in the descending colon, in the transverse colon and in the ascending colon. The colon (entire examined portion) was mildly tortuous. The exam was otherwise normal throughout the examined colon. __ _ Impression: - The examined portion of the ileum was normal. - Diverticulosis in the sigmoid colon, in the descending colon, in the transverse colon and in the ascending colon. - Tortuous colon. Recommendation: - Repeat colonoscopy in 5 years for surveillance. - Return to my office PRN. - Discharge patient to home. Procedure Code(s): --- Professional --- 57600, Colonoscopy, flexible, proximal to splenic flexure; diagnostic, with or without collection of specimen(s) by brushing or washing, with or without colon decompression (separate procedure) --- Technical --- 61817, Colonoscopy, flexible, proximal to splenic flexure; diagnostic, with or without collection of specimen(s) by brushing or washing, with or without colon decompression (separate procedure) Diagnosis Code(s): --- Professional --- V76.51, Special screening for malignant neoplasms of colon V16.0, Family history of malignant neoplasm of gastrointestinal tract V18.51, Family history of colonic polyps 562.10, Diverticulosis of colon (without mention of hemorrhage) --- Technical --- V76.51, Special screening for malignant neoplasms of colon V16.0, Family history of malignant neoplasm of gastrointestinal tract V18.51, Family history of colonic polyps 562.10, Diverticulosis of colon (without mention of hemorrhage) CPT copyright 2013 [employer]. All rights reserved. The codes documented in this report are preliminary and upon bookkeeping assistant review may be revised to meet current compliance requirements. Ben Irving MD 07/15/2014 10:13 AM Number of Addenda: 0 Note Initiated On: 07/15/2014 9:49 AM Procedure Date: 07/15/2014 9:49:48 AM Estimated Blood Loss: Estimated blood loss: none. [facility] ENDOSCOPY 07/15/2014 9:49 AM CDT Ben Irving MD GI PROCEDURE ORDERABLES Edited Result - Final [facility] ENDOSCOPY * LIPID PROFILE (12/08/2012 11:12 AM NON PROFIT FINANCIAL CONTROLLER) Cholesterol 187 100 - 199 mg/dL [facility] ACCOUNT BILL Triglycerides 51 0 - 149 mg/dL [facility] ACCOUNT BILL HDL Cholesterol 91 >39 mg/dL [facility] ACCOUNT BILL Comment: According to ATP-III Guidelines, HDL-C >59 mg/dL is considered a negative risk factor for CHD. VLDL Calculated 10 5 - 40 mg/dL [facility] ACCOUNT BILL LDL Calculated 86 0 - 99 mg/dL [facility] ACCOUNT BILL Blood specimen (specimen) BLOOD SPECIMEN / Unknown 12/08/2012 11:12 AM NON PROFIT FINANCIAL CONTROLLER 12/08/2012 6:03 PM NON PROFIT FINANCIAL CONTROLLER Narrative Resulting Agency Comment [facility] [address] [facility] [id number] Radha Ortiz MD LAB - CHEMISTRY ORDERABLES Final Result [facility] ACCOUNT BILL [address] [place] [address] from Last 3 Months or Most Recently Relevant to Health Maintenance Insurance MEDICAID - OUT OF STATE UHC MANAGED MEDICARE ADV [facility] Care Teams Sign Hanger Supervisor Relationship Specialty Start Date End Date Quinton Richardson MD PCP - General 02/26/19
--- OUTSIDE RECORDS SUMMARY | 2025-09-13 10:39 | XMS_ITS | Encounter Summary ---
Author Organization [facility] Address [address] [place] [address] Care Team Providers Care Child Care Cook Name Role Phone Quinton Richardson MD Primary Care Provider [phone] Encounter Details Date Type Department Care Team (Late st Contact Info) Description 08/06/2016 [facility] Outpatient Visit [facility] [address] [place] [address] Document, Scanned Social History Tobacco Use Types Packs/Day Years Used Date Smoking Tobacco: Light Smoker Cigarettes 0.3 29 Started: 985; Last attempted to quit: 11/21/2013 Smokeless Tobacco: Never Comments:Passive smoker mayb e 4 cigarettes a day Alcohol Use Standard Drinks/Week Comments Yes 0 (1 standard drink = 0.6 oz pur e alcohol) occ Comments No Sex and Gender Information Value Date Recorded Sex Assigned at Not on file Legal Sex Female 4:36 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 Author Quit smoking / using tobacco Lifestyle Not on track( 014 11:09 AM CDT) No Emmanuelle Soni documented as of this encounter Visit Diagnoses Not on filedocumented in this encounter Care Teams Child Care Cook Relationship Specialty Start Date End Date Quinton Richardson MD PCP - General 02/26/19 documented as of this encounter
--- OUTSIDE RECORDS SUMMARY | 2025-09-13 10:39 | XMS_ITS | Clinical Summary ---
Author Organization [facility] Address [address] [facility] [address] [place] [address] Phone Care Team Providers Care Bobtailer Name Role Phone Dylan Quinton Primary Care Provider [phone] Ja Lake MD Unavailable [phone] Social History Tobacco Use Types Packs/Day Years Used Date Smoking Tobacco: Never Assessed Comments Unknown Sex and Gender Information Value Date Recorded Sex Assigned at Not on file Legal Sex Female 3:04 PM CDT Gender Identity Not on file Sexual Orientation Not on file Plan of Treatment Health Maintenance Due Date Last Done Comments Hepatitis C Virus (HCV) Screening 1965 TdaP Immunization 1965 Pap Smear 1984 Cervical Cancer Screening (CCS) 1993 HPV/Cotest 1993 Cologuard 2008 Colonoscopy 2008 Colorectal Cancer Screening 2008 Immunochemical Fecal Occult Blood 2008 Pneumococcal Immunization (5 0+ years) (1 of 1 - PCV) 2013 Zoster Immunization (1 of 2) 2013 Medicare Initial AWV [id number] 11/21/2022 Influenza Immunization (#1) 2025 10/03/2020, 09/25/2018, 11/09/2017 SARS-COV-2 Immunization (2 - 2024- season) 2025 02/27/2021 Respiratory Syncytial Virus (RSV) Immunization (Adult) (1 - 1-dose 75+ series) 2038 Hepatitis B Immunization Aged Out No longer eligible based on patient's age to complete this topic Human Papillomavirus (HPV) Immunization Aged Out No longer eligible b ased on patient's age to complete this topic Meningococcal Immunization (ACWY) Aged Out No longer eligible b ased on patient's age to complete this topic Rotavirus Immunization Aged Out No lo nger eligible based on patient's age to complete this topic Insurance MEDICAID [facility] [employer] MEDICARE C [employer] Care Teams Bobtailer Relationship Specialty Start Date End Date Quinton Richardson [address] [place] [address] PCP - General Family Medicine 08/13/22 Ja Lake MD [address] [place] [phone] Consulting Physician Oncology 08/13/22
--- OUTSIDE RECORDS SUMMARY | 2025-09-13 10:39 | XMS_ITS | Clinical Summary ---
Author Organization [facility] Address [address] [place] [address] Care Team Providers Care Instructor Warper Name Role Phone Quinton Richardson MD Primary Care Provider [phone] Allergies Active Allergy Reactions Criticality Noted Date Comments Amoxicillin Other (see comment) 02/26/2019 C-diff Bupropion Rash Medium 02/26/2019 Penicillins Vomiting High 03/20/2019 Medications ALPRAZolam 1 MG tablet TAKE ONE TABLET BY MOUTH AT BEDTIME NEEDED FOR ANXIETY 02/10/2018 Active amlodipine 5 MG tablet Take 5 mg by mouth. Active famotidine 40 MG tablet Take 40 mg by mouth. Active meclizine 25 MG tablet Take 25 mg by mouth 3 (three) times daily. Active traMADol 50 MG tablet Take 50 mg by mouth every 6 (six) hours. Active venlafaxine XR 150 MG 24 hr capsule Take 150 mg by mouth. Active Cholecalciferol 1000 units Chew Tab Active Cyanocobalamin 1000 MCG Cap Active baclofen 20 MG tablet 01/23/2019 Active ibuprofen 800 MG tablet 09/22/2018 Active Active Problems Problem Noted Date Diagnosed Date Lumbar radiculopathy 08/20/2019 Overview (08/20/2019): Added automatically from request for surgery [id number] Sacroiliitis 03/20/2019 Family History Medical History Relation Comments Heart Disease Father Arthritis Mother Kidney Disease Mother Relation Status Comments Father Mother Social History Tobacco Use Types Packs/Day Years Used Date Smoking Tobacco: Former Cigarettes Q uit: 08/30/2019 Smokeless Tobacco: Never Alcohol Use Standard Drinks/Week [...] on file Sexual Orientation Not on file Last Filed Vital Signs Vital Sign Reading Time Taken Comments Blood Pressure 151/81 08/30/2019 10:01 AM CDT Pulse 69 08/30/2019 10:01 AM CDT Temperature 36.7 C (98.1 F) 05/29/2019 12:11 PM CDT Respiratory Rate 18 08/30/2019 10:01 AM CDT Oxygen Saturation 99% 08/30/2019 10:01 AM CDT Inhaled Oxygen Concentration - - Weight 63.5 kg (140 lb) 04/11/2019 10:17 AM CDT Height 157.5 cm (5' 2) 04/11/2019 10:17 AM CDT Body Mass Index 25.61 04/11/2019 10:17 AM CDT Plan of Treatment Health Maintenance Due Date Last Done Comments Cervical Cancer Screening Pa p Smear (Age 30 to 64) Every 3 Years 1965 Colorectal Cancer Screening Colonoscopy (10 Years) 1963 Annual Physical 1966 Hepatitis C 1981 Cervical Cancer Screening Pa p with HPV Testing (Age 30 to 64) Every 5 Years 1993 Cervical Cancer Screening with HPV 1993 Mammogram Screening 2003 Zoster Vaccines (1 of 2) 2013 Pneumococcal Vaccine: 50+ Ye ars (2 of 2 - PCV) 07/03/2014 07/03/2013 DTaP, Tdap and Td Vaccines ( 2 - Td or Tdap) 02/22/2024 02/21/2014 COVID-19 Vaccine ( - 2024-2 6 season) 2025 Influenza Adult (#1) 2025 RSV Immunization or 60+ Years (1 - 1-dose 75+ series) 2038 Hepatitis A Vaccines Aged Out No long er eligible based on patient's age to complete this topic Meningococcal B Vaccine Aged Out No l onger eligible based on patient's age to complete this topic Meningococcal Vaccine Aged Out No marissa savannah eligible based on patient's age to complete this topic RSV Immunizations Under 20 Months Aged Out No longer eligible based on patient's age to complete this topic Insurance [employer] Care Teams Instructor Warper Relationship Specialty Start Date End Date Quinton Richardson MD PCP - General FAMILY PRACTICE 03/20/19
--- OUTSIDE RECORDS SUMMARY | 2025-09-13 10:39 | XMS_ITS | Encounter Summary ---
Author Organization [facility] Healthcare Address [address] [place] [address] Care Team Providers Care Towel Sorter Name Role Phone Quinton Richardson MD Primary Care Provider [phone] Reason for Visit * Reason Onset Date Comments Scheduling Appointments 08/27/202408/27 LVM for patient to call back to schedule. Encounter Details Date Type Department Care Team (Late st Contact Info) Description 08/27/2024 Telephone [facility] [address] [address], [address] [place] [address] Kristel Palma MD [address] [place] [address] Scheduling Appointments (08/27 LVM for patient to call back to schedule.) Social History Tobacco Use Types Packs/Day Years Used Date Smoking Tobacco: Former Cigarettes AUDIT-C Answer Date Recorded Q1: How often do you have a drink containing alcohol? Never 08/21/2024 Q2: How many drinks containi ng alcohol do you have on a typical day when you are drinking? Patient does not drink Q3: How often do you have si x or more drinks on one occasion? Never 08/21/2024 Personal Safety Answer Date Recorded Getting School Help Needed Not on file 11/05 Comments Unknown Sex and Gender Information Value Date Recorded Sex Assigned at Not on file Legal Sex Female 9:27 AM RETREADER Gender Identity Female 08/17/2024 9:13 AM CDT Sexual Orientation Not on file documented as of this encounter Plan of Treatment Not on file documented as of this encounter Goals Goal Patient Goal Type Associated Problems Recent Progress Patient-Stated? Author CCM Chronic Pain Care Plan Chronic Care Management No Charlene Mcleod, RN Note: Problem: Chronic Pain Goals: 1. Minimize further functional decline 2. Maximize quality of life 3. Control pain Strategies: - Activity/exercise program recommendation - Conservative stepwise pain medicine strategy with multi-disciplinary approach - Recommend healthy lifestyle strategies and compensatory methods as needed [facility] Fall Prevention Care Plan Chronic Care Management No Charlene Mcleod, RONAL Note: Problem: Falls Goals: 1. Maintain strength and balance as able 2. Prevent falls and fractures 3. Maximize safety of living environment Strategies: - Educate on fall prevention and follow-up as needed - Recommend activity/exercise program - Refer to allied health as needed - Recommend healthy lifestyle strategies and compensatory methods as needed documented as of this encounter Visit Diagnoses Not on filedocumented in this encounter Additional Health Concerns Infection Onset Date Last Indicated Resolved Time C. difficile Comment:Treated and resolved 01/12/2019 01/11/2019 09/26/2024 9:50 AM RETREADER documented as of this encounter Care Teams Towel Sorter Relationship Specialty Start Date End Date Quinton Richardson MD PCP - General 01/12/19 documented as of this encounter
--- OUTSIDE RECORDS SUMMARY | 2025-09-13 10:39 | XMS_ITS | Encounter Summary ---
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 Historical Provider Final Res ult documented in this encounter Visit Diagnoses Not on filedocumented in this encounter Additional Health Concerns Infection Onset Date Last Indicated Resolved Time C. 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
== END 2025-09-13 10:05 | disposition home or self-care (01) ==
LOC: ANHFOHIMG 10:19
PROVIDERS: PCP Emergency Medicine; Visit Provider Emergency Medicine
DX: Z12.31 Encounter for screening mammogram for malignant neoplasm of breast (principal); M85.89 Other specified disorders of bone density and structure, multiple sites
CPT/HCPCS: 77063; 77067; 77080